=== PATIENT | male | born 1945 | race Caucasian/White ===

== ENCOUNTER 2023-08-03 09:25 | Day surgery (SDC) | payer MEDICARE, OTHER, SELFPAY ==
[2023-08-03 09:49] LABS: Hematocrit 32.5 % (39.0-52.0); Hemoglobin 10.2 g/dL (13.0-18.0); Mean Corp Hgb Conc. 31.4 g/dL (33.0-37.0); Mean Corpuscular Hgb 28.4 pg (27.0-31.0); Mean Corpuscular Volume 90.5 fL (80.0-94.0); Mean Platelet Volume 8.8 fL (7.4-10.4); Platelet Count 173 10^3/uL (130-400); Red Blood Cell Count 3.59 10^6/uL (4.70-6.10); Red Cell Dist. Width 16.9 % (11.5-14.5); White Blood Cell Count 7.1 10^3/uL (4.8-10.8)
[2023-08-03 09:58] VITALS: BP 90/60
[2023-08-03 09:58] LABS: APTT 27.9 Sec (23.4-35.0); INR 1.15; PT 14.6 Sec (11.4-14.6)
--- NOTE | 2023-08-03 10:02 | W.ICD.CONTRA ---
Post ICD/TOWEL DISTRIBUTOR-D
-
History of NM?: No
LV Function
Left ventricular function study result?: Ejection Fraction </= 35%
ACEI/ARB/ARNI
Patient already on ACEI/ARB/ARNI: No
ACEI/ARB/ARNI Contraindication: Worsening Renal Function
Beta-Emelina
Patient already on Beta Emelina: Yes
[2023-08-03 10:10] LABS: ALT (SGPT) 16 U/L (0-50); AST (SGOT) 21 U/L (17-59); Albumin 3.1 g/dl (3.5-5.0); Alkaline Phosphatase 89 U/L (38-126); Blood Urea Nitrogen 40 mg/dl (9-20); Calcium 8.6 mg/dl (8.4-10.2); Carbon Dioxide 28 mmol/L (22-30); Chloride 99 mmol/L (98-107); Glucose 94 mg/dl (70-99); Potassium 4.1 mmol/L (3.5-5.1); Sodium 137 mmol/L (135-145); Total Bilirubin 0.6 mg/dl (0.2-1.3); Total Protein 5.8 g/dl (6.3-8.2); eGFR 11.58
[2023-08-03 11:14] VITALS: BP 80/57
[2023-08-03 11:15] VITALS: BP 80/57
[2023-08-03 11:29] VITALS: BP 83/58
[2023-08-03 11:44] VITALS: BP 81/50
[2023-08-03 11:59] VITALS: BP 91/56
--- NOTE | 2023-08-03 12:29 | ITS.CL.ICD ---
Logistics Project Manager - ICD
Implantable Cardioverter Defibrillator
Procedure Report:
Date of Procedure: August 03, 2023
Patient : 1945
Procedures: BiV ICD generator change
Indication: 1) Class III CHF, LVEF 20 to 25% with wide QRS greater than 150 ms and generator at DREA
�
Implants:�
Pulse Generator: Bermudez CD3 [id number] serial #[id number]
Atrial Lead: Bermudez 1943; Serial# [id number] implanted 2010
Right Ventricular Lead: Bermudez 7120Q serial number [id number]; implanted 2010
Left Ventricular Lead: Bermudez; Model# [id number]; Serial# [id number] implanted 2010
�
Explanted generator:
Bermudez model 3357 serial #[id number] implanted 2016
�
Technique: The patient was prepped and draped in the usual fashion. Local anesthetic was applied to the left prepectoral subcutaneous tissue. The subcutaneous pocket was entered and. Hemostasis was excellent. The chronic leads were removed from
the chronic generator and the chronic generator was removed from the field. The new generator was brought to the field and connected to the chronic leads. The leads were appropriately attached to the device. The pocket was irrigated with
antibiotic solution. The device and leads were placed in the pocket and the device was secured to pectoralis muscle and facia. The incision was closed with absorbable sutures. The estimated blood loss was minimal. There were no complications. Device
based testing was performed as described below. IV contrast total: 5 cc.
�
System Analysis:
RA lead: The patient was in atrial fibrillation and in permanent atrial fibrillation was left in VVIR mode. There is been chronic noise on the right atrial lead but the lead tip was placed in the generator.
RV lead: R: 6 mV; Threshold: 1.0 V @ 0.5 ms; Impedance: 360 ohms.
LV lead: Threshold: 0.75 V @ 0.5 ms; Impedance: 310 ohms.
�
Final Programming: Tachy: VT/VF:188; Georgi: VVIR 60-120
�
Conclusion: Uncomplicated Biventricular ICD implant and testing.
�
Recommendation: Routine post BiV ICD care.
�
cc: Dr. Deven Mantilla
�
== END 2023-08-03 12:20 | disposition home or self-care (01) ==
LOC: CATH 09:25
PROVIDERS: ATTENDING PHYSICIAN Internal Medicine Cardiovascular Disease; FAMILY PHYSICIAN Family Medicine; OTHER PHYSICIAN Internal Medicine Cardiovascular Disease
DX: Z45.02 Encounter for adjustment and management of automatic implantable cardiac defibrillator (principal); I50.42 Chronic combined systolic (congestive) and diastolic (congestive) heart failure; I11.0 Hypertensive heart disease with heart failure; I25.10 Atherosclerotic heart disease of native coronary artery without angina pectoris; I42.9 Cardiomyopathy, unspecified
CPT/HCPCS: 33264; 80053; 85027; 85610; 85730; C1882

== ENCOUNTER 2024-06-07 18:25 | Observation (INO) | payer MEDICARE, OTHER, SELFPAY ==
[2024-06-07] VITALS (7 sets, daily range): BP systolic 81–101; BP diastolic 43–65; BMI 23.1; BMI 23.5
--- NOTE | 2024-06-07 15:14 | ED.GENMED ---
History of Present Illness
General
Chief Complaint: Dehydration Symptoms
Source: patient
Exam Limitations: none
Time Seen by Provider: 06/07/24 14:56
Nursing documentation reviewed up to this point in time: agreed with
History of Present Illness
History of Present Illness:
Patient is a 78-year-old male with past medical history of lung cancer, 7 years ago with radiation, end-stage renal disease on peritoneal dialysis, hypertension, pacemaker, insulin had diabetes presents to the ER for evaluation. Patient reports he
has been sick for the past 2 weeks with cough and chest congestion. He completed 1 antibiotic which did not help with symptoms and his family doctor put him on Zithromax. Since being on Zithromax he has been feeling better. Here now reports for
the past 3 days he has had diarrhea. He does peritoneal dialysis on his own every night however he went into the dialysis center today and they did culture his fluid and analyze his fluid which was clear. I do not feel this is infected. They were
concerned however that he was dehydrated and was sent to the ED for labs/fluids.
Pt denies any abdominal pain, fevers.
Pt has had a decreased appetite and has lost weight since he has been sick for the past several days.
Pt reports his BP normally runs in the 90s/ .
Review of Systems
Review of Systems
Allergies reviewed?: Yes
All Other Systems: ROS reviewed and negative except as documented in HPI and ROS
Constitutional: Reports no symptoms; Denies fever, fatigue or chills
Respiratory: Reports cough (has improved )
Cardiac: Reports no symptoms
ABD/GI: Reports diarrhea; Denies abdominal pain, nausea or vomiting
: Reports no symptoms
Musculoskeletal: Reports no symptoms
Skin: Reports no symptoms
Neurological: Reports no symptoms
Psychiatric: Reports no symptoms
Phy Exam
General Physical Exam
General Presentation: no apparent distress
General age: appears stated age
General Skin: warm and dry
General Habitus: elderly
General Mental: alert
General Hydration: dry mucous membranes
Cardiovascular Exam
Cardiovascular Exam: regular rate/rhythm, no murmur and normal peripheral pulses
Pulmonary Exam
Pulmonary Exam: lungs clear and no respiratory distress
Gastrointestinal Exam
Gastrointestinal Exam: non tender, soft and other (no erythema to abdomen)
Neurological Exam
Neurological Exam: alert and oriented x3
Musculoskeletal Exam
Musculoskeletal Exam: full ROM
Skin Exam
Skin Exam: normal color and warm/dry
Psychiatric Exam
Psychiatric Exam: normal mood/affect
Course
Orders/Labs/Results
Orders:
Orders
06/07/24 Breakfast
Sodium, 2 Gram
At Your Request: Full Participation
Fluid Restriction: 1500 mL/day (50 oz)
Low Sodium: 2000 debi/ 17 CHO Diabetic
06/07/24 15:15
IV Insert/Care/Rem.- Treatment PRN
06/07/24 15:16
CR Chest - 2 Views Urgent
Comment:
Reason For Exam: cough
06/07/24 15:17
0.9% Sodium Chloride 1000 ml [Nss] 1,000 ml IV BOLUS
06/07/24 15:40
Complete Blood Count/With Diff Urgent
Comprehensive Metabolic Panel Urgent
06/07/24 16:33
Potassium Chloride [KCl] 40 meq PO NOW STA
06/07/24 16:46
Midodrine [ProAmatine] 15 mg PO NOW STA
06/07/24 17:41
Potassium Chloride [KCl] 40 meq 0.9% Sodium Chloride 250 ml [Nss] 250 ml IV NOW
06/07/24 18:01
Admit/Transfer Patient As Directed
Co-Sign Provider:
Level of Care: Observation services
Assign to:: IMU- Intermediate Care
Physician / Group: Paul Lorenzo
Diagnosis: Hypokalemia
06/07/24 18:02
PRN Pain Medication Management As Directed
May give lesser potent ordered pain med per pt: Yes
preference::
Protocol:: Medication orders for pain may be administered in a
manner that supports deferring to patient preference
when the pt is:
- Requesting an ordered lesser potent pain medication.
Least to most potent pain medications are defined
as: acetaminophen < NSAID < tramadol < opioids
(morphine, oxycodone, hydromorphone).
- Requesting a lesser dose of the same medication IF
ORDERED.
- Requesting a less intrusive route of administration
if both routes are prescribed by the provider (PO <
IV).
06/07/24 18:04
Code Status As Directed
Resuscitation Status: Full Code
06/07/24 19:45
Acetaminophen [Tylenol] 650 mg PO Q4HPRN PRN
Dextrose 50%-Water [Dextrose 50% Syringe] 12.5 grams IV Q02CRRH PRN
Glucagon [GlucaGen] 1 mg IM PRN PRN
Pt's Own Ins. Pump Aspart [PT'S OWN INSULIN PUMP - NovoLOG] See Dose Instructions SC PRN PRN
06/07/24 19:45
Activity As Directed
Activity Level: Out of Bed-Early Mobility
With Assistance
Bedside Glucose Monitoring As Directed
Frequency: AC&HS
Vital Signs As Directed
Frequency: Per unit guidelines
Weight As Directed
Frequency: Daily
DX Deep Vein Thrombosis Video Routine
06/07/24 20:00
Heparin 5,000 units SC Q12
Tamsulosin [Flomax] 0.4 mg PO BID
06/07/24 21:59
Potassium Routine
06/07/24 22:00
Midodrine [ProAmatine] 15 mg PO TID
Pt's Own Ins. Pump Aspart [PT'S OWN INSULIN PUMP - NovoLOG] See Dose Instructions SC ACHS
06/08/24 03:58
Basic Metabolic Panel IN AM
Complete Blood Count/No Diff IN AM
Hgba1c [Glycohemoglobin (HgbA1c)] IN AM
06/08/24 06:00
Levothyroxine [Synthroid] 50 mcg PO DAILY@0600
06/08/24 08:00
Atorvastatin [Lipitor] 10 mg PO DAILY
Calcium Acetate [Phoslo] 667 mg PO BID@0800,1200
Ergocalciferol [Drisdol (Vitamin D2)] 50,000 units PO Q30D
Lactobac/Bifidobac [Visbiome] 1 cap PO DAILY
Pantoprazole [Protonix] 40 mg PO DAILY
Renal Cap [Nephrocap] 1 capsule PO DAILY
Abnormal Lab Results
06/07/24
15:40
RBC 3.70 L 10^6/uL
(4.70-6.10)
Hgb 11.3 L g/dL
(13.0-18.0)
Hct 33.6 L %
(39.0-52.0)
RDW 17.0 H %
(11.5-14.5)
Abs Immat Gran (auto) 0.1 H 10^3/uL
(0-0.05)
Absolute Monos (auto) 1.2 H 10^3/uL
(0.1-0.6)
Immature Gran % 1.4 H %
(0-0.5)
Lymphocytes % 17.1 L %
(20.5-51.1)
Monocytes % 12.7 H %
(1.7-9.3)
Potassium 2.6 L* mmol/L
(3.5-5.1)
Chloride 95 L mmol/L
(98-107)
BUN 30 H mg/dl
(9-20)
Creatinine 6.7 H* mg/dL
(0.7-1.3)
Glucose 126 H mg/dl
(70-99)
Total Protein 6.1 L g/dl
(6.3-8.2)
Albumin 3.2 L g/dl
(3.5-5.0)
06/07/24 15:40
06/07/24 15:40
Vital Signs
Initial and Last Documented VS:
Initial Vital Signs
Temp Pulse Resp BP
97.7 F 59 20 86/43
06/07/24 14:23 06/07/24 14:23 06/07/24 14:23 06/07/24 14:23
Last Documented Vital Signs
Temp Pulse Resp BP Pulse Ox
97.1 F 60 18 90/50 94
06/08/24 11:00 06/08/24 11:00 06/08/24 11:00 06/08/24 11:00 06/08/24 06:18
MDM/Problems Addressed
Differential Diagnosis Includes:
not limited
MDM/Problems Addressed:
As documented patient is a 78-year male history of end-stage renal disease on hemodialysis presented for evaluation. Patient has had cough for the past 2 weeks completed antibiotics however the past 3 days has had diarrhea. Patient was sent for
possible dehydration from his dialysis nurses. Patient's denies any fevers and is afebrile here no diarrhea here he denies any abdominal pain and his fluid was clear at dialysis center this morning. No concerning symptoms for SBP. Patient does
appear dry and was given fluids. He reports his blood pressure is normally in the 90s systolically. He has been in the ED systolically here however is due for midodrine. This dose was ordered. His potassium was found to be low at 2.6 no acute EKG
findings. Patient was ordered IV and oral potassium.
Will admit for dehydration and hypokalemia.
Chronic conditions affecting care:
ESRD hx of PD (pt does on his own )
*Radiology
Radiology exam reviewed: radiology read reviewed
*Pulse Oximetry
Patient hypoxic: no
*Critical Care Note
Total Time (30-74mins, 75-104mins- exclusive of procedures): Not Applicable
ED Attending Note
-
Portions of this chart may have been created with voice recognition software.� Occasional wrong word or��sound alike� substitutions may have occurred due to the inherent limitations of voice recognition software.
Discharge Plan
Departure
Patient Disposition: Admit
Date of Disposition: 06/07/24
Time of Disposition: 16:50
Admit to: Telemetry
Admit to doctor: hypokalemia
Presentation/result/management discussed w/ accepting MD/DO: Hospitalist
Patient with high blood pressure during this ER visit?: No
Condition: Fair
Covid-19: Not Applicable
Discharge Problem:
Acute hypokalemia
Interventions
Interventions:
*Risk Screen - Suicide Last Done: 06/07/24 21:24
*General Assessment Last Done: 06/07/24 15:43
*Neglect/Abuse Screening Last Done: 06/07/24 15:43
*ED- Fall Risk Assessment Last Done: 06/07/24 15:43
*ED COVID-19 Vaccine History Last Done: 06/07/24 21:24
*Nursing Disposition Last Done: 06/07/24 19:57
ED- Cardiac Assessment Last Done: 06/07/24 17:25
ED- Neurological Assessment Last Done: 06/07/24 15:55
ED- Pulmonary Assessment Last Done: 06/07/24 15:55
Discharge Date and Time
Discharge Date/Time: 06/07/24 19:59
[2024-06-07] MEDS: NSS 1000 IV (15:42)
[2024-06-07 15:58] LABS: % Immature Granulocytes 1.4 % (0-0.5); % Lymphocytes 17.1 % (20.5-51.1); % Monocytes 12.7 % (1.7-9.3); % Neutrophils 64.8 % (42.2-75.2); Absolute Basophils 0.1 10^3/uL (0-0.2); Absolute Eosinophils 0.3 10^3/uL (0-0.7); Absolute Immature Granulocytes 0.1 10^3/uL (0-0.05); Absolute Lymphocytes 1.6 10^3/uL (1.2-3.4); Absolute Monocytes 1.2 10^3/uL (0.1-0.6); Absolute Neutrophils 6.1 10^3/uL (1.4-6.5); Hematocrit 33.6 % (39.0-52.0); Hemoglobin 11.3 g/dL (13.0-18.0); Mean Corp Hgb Conc. 33.6 g/dL (33.0-37.0); Mean Corpuscular Hgb 30.5 pg (27.0-31.0); Mean Corpuscular Volume 90.8 fL (80.0-94.0); Mean Platelet Volume 8.6 fL (7.4-10.4); Nucleated Red Blood Cells % 0 % (-); Platelet Count 174 10^3/uL (130-400); White Blood Cell Count 9.3 10^3/uL (4.8-10.8)
[2024-06-07 16:26] LABS: ALT (SGPT) 20 U/L (0-50); AST (SGOT) 21 U/L (17-59); Albumin 3.2 g/dl (3.5-5.0); Alkaline Phosphatase 107 U/L (38-126); Blood Urea Nitrogen 30 mg/dl (9-20); Calcium 9.2 mg/dl (8.4-10.2); Carbon Dioxide 28 mmol/L (22-30); Chloride 95 mmol/L (98-107); Estimated Creatinine Clearance 10 ml/min; Glucose 126 mg/dl (70-99); Potassium 2.6 mmol/L (3.5-5.1); Sodium 136 mmol/L (135-145); Total Bilirubin 0.8 mg/dl (0.2-1.3); Total Protein 6.1 g/dl (6.3-8.2); eGFR 7.96
[2024-06-07] MEDS: KCL 40 MEQ PO ×2 (16:40→22:49)
[2024-06-07] MEDS: ProAmatine 15 MG PO ×2 (16:52→21:17)
--- NOTE | 2024-06-07 17:59 | W.PN.UPDATE ---
Update Note
Progress Note Update
I saw and examined the patient.
The ENFORCEMENT MANAGER's note was reviewed and I agree with the note.
Patient is a 78-year-old male with past medical history of ESRD on peritoneal dialysis, essential hypertension, hyperlipidemia, chronic systolic congestive heart failure, hypothyroidism chronic hypotension on midodrine, gastroesophageal reflux
disease, insulin-dependent diabetes mellitus came to ER from outside office after patient was complaining of feeling sick for the last few days. Apparently patient was having some cough without significant phlegm production and patient was given 2
course of antibiotics. The second to biotic was Zithromax with which patient improved although patient started having some diarrhea with last bowel movement yesterday afternoon before presentation and was semiliquid. No abdominal
pain/nausea/vomiting/fever.
HEENT: No pallor, cyanosis, or jaundice. Throat clear.
NECK: Supple. No JVD.
RESPIRATORY: Lungs clear to auscultation.
CVS: S1, S2 normal. RRR. No murmur, rub or gallop.
ABDOMEN: Soft, non-tender. No distension. BS+/normal.
EXTREMITIES: No peripheral cyanosis or edema.
SENIOR DYNAMICS CRM DEVELOPER: AOx3. No focal deficits.
1. R/o infection
- No reported fever. No leukocytosis on lab. Continue monitoring
- Chest x-ray showing bilateral effusion which is chronic per patient
- Patient had a peritoneal fluid sample taken in office, follow-up result. Will contact primary office tomorrow for preliminary report
- Patient had diarrhea which has improved, likely antibiotic use related. If continues we will recheck.
- Patient already finished a course of antibiotic, hold on any further antibiotic
- If any fever episode patient will require blood cultures/repeat peritoneal fluid sample and culture
2. ESRD on PD
- Nephrology consulted for further help
3. Chronic Hypotension
- This improved after 1 L of normal saline in the ER
- Continue home dose of midodrine
- Will hold Coreg/eplerenone for tonight
4. Chronic systolic congestive heart failure
- Patient has been on torsemide in the past, currently not on it
- No signs suggestive of ongoing volume overload/heart failure exacerbation
5. Insulin-dependent diabetes mellitus
- Continue patient home insulin pump
6. Hypothyroidism
- Maintain on levothyroxine
7. Hypokalemia
- Due to decreased oral intake and some diarrhea related
- Got 40 mEq in ER,
Heparin subq
Total time spent : 77 mins
I personally saw and examined the patient.
I have reviewed all diagnostic interpretations and treatment plans as written.
Time includes patient management by me, time spent at the patients bedside, time to review lab and imaging results, discussing patient care, documentation in the medical record, and time spent with the family or caregiver and discussing care plan
with RN/Consultants.
--- NOTE | 2024-06-07 18:11 | HPS.HSE ---
Family Physician
-
Family Physician: Adriel Adam
Chief Complaint
-
Weakness and Poor Appetite
History of Present Illness
Patient is a 78 y/o male past medical history of VT, Atrial Fibrillation, ESRD on PD, chronic hypotension, and diabetes mellitus who presents with weakness. Patient reports he started with an upper respiratory infection about 2 weeks ago. He
completed a coarse of Zithromax which improved his respiratory symptoms but since that time he has had poor appetite, and also a few episode of diarrhea. He reports one episode of diarrhea for the past two days, but none today. Due to his
persistent weakness he contact his PD nurse who took a fluid sample from the PD catheter and reported it was 'clear', but would sent it off for culture just in case. He presented to the emergency department for evaluation where he was found to have
hypokalemia, and hypotension. Patient received IVFs and his usual dose of midodrine with improvement in his blood pressure, and reports feeling overall improved. Patient notes he previously was taking a potassium supplement which was stopped a few
weeks ago. He also admits to stopping his diuretics a few weeks ago as he is no longer making much urine. He denies fevers, sweats or chills.
Medical History
Past Medical History
Past Medical History: Reports Other
Additional Past Medical History:
Ventricular Tachycardia
Atrial Fibrillation s/p PVI and MAZE procedure
ESRD on Peritoneal Dialysis
Chronic Hypotension
Diabetes Mellitus, Type II
Hyperlipidemia
Hypothyroidism
BPH
GERD
Prostate Cancer s/p seed brachytherapy
Past Surgical History: Reports Other
Additional Past Surgical History:
BiVICD
Left Upper Ext AV Fistula
Left Ankle Bone Spur
Social History
Tobacco: Non-smoker
Alcohol: None
Family History
Family History: Not pertinent
Allergies / Home Medications
Allergies reflects when Allergies were last updated in [employer].
Home Medications with original date entered in [employer]
Allergy/Medication List:
Allergies
Allergy/AdvReac Type Severity Reaction Status Date / Time
teds stocking Allergy blisters Uncoded 06/07/24 14:27
Home Medications
atorvastatin 10 mg tablet 10 mg PO DAILY 03/13/16
eplerenone 25 mg tablet 25 mg PO DAILY 03/13/16
levothyroxine 50 mcg tablet 50 mcg PO DAILY 11/05/21
pantoprazole 40 mg tablet,delayed release 40 mg PO DAILY 11/05/21
tamsulosin 0.4 mg capsule (Flomax) 0.4 mg PO BID 11/25/21
calcium acetate 667 mg tablet 667 mg PO BID@0800,1200 08/03/23
midodrine 5 mg tablet 15 mg PO TID 08/03/23
Patient's Own Insulin Pump-Novolog See Rx Instructions .Route .COMPLEX 06/07/24
carvedilol 3.125 mg tablet 3.125 mg PO BID 06/07/24
ergocalciferol (vitamin D2) 1,250 mcg (50,000 unit) capsule 1,250 mcg PO QMONTH 06/07/24
gentamicin 0.1 % topical cream 1 applic topical HS 06/07/24
vitamin B complex-vitamin C-folic acid 0.8 mg tablet (Leah-Wade) 1 tab PO DAILY 06/07/24
Review of Systems
-
A 12 point ROS was completed and negative except as noted: Yes
Constitutional: Denies Fever or Chills
Respiratory: Reports Other (Prior respiratory symptoms improved)
Abdomen/GI: Reports Diarrhea and Anorexia; Denies Abdominal Pain or Nausea
Physical Exam
Vital Signs
Vital Signs
Temp Pulse Resp BP Pulse Ox
97.7 F 58 16 81/65 99
06/07/24 14:23 06/07/24 16:52 06/07/24 15:45 06/07/24 16:52 06/07/24 16:00
Physical Exam
General: Comfortable and Conversant
HEENT: Anicteric and Moist mucous membranes
Respiratory: Clear and Non Labored Respirations
Cardiac: S1/S2 and Regular Rhythm
GI: Soft, Non Tender and Other (PD catheter)
Musculoskeletal: No Clubbing and No Cyanosis
Skin: Warm and Dry
Neuro: Awake, Alert, Oriented and Nonfocal/grossly intact
Psych: Calm
Laboratory Results
-
06/07/24 15:40
Laboratory Results
PT Cancelled 06/07/24 14:50
INR Cancelled 06/07/24 14:50
APTT Cancelled 06/07/24 14:50
Total Bilirubin 0.8 mg/dl (0.2-1.3) 06/07/24 15:40
AST 21 U/L (17-59) 06/07/24 15:40
ALT 20 U/L (0-50) 06/07/24 15:40
Alkaline Phosphatase 107 U/L (38-126) 06/07/24 15:40
Troponin I Cancelled 06/07/24 14:50
Data Reviewed
-
Lab Data: Labs Reviewed by me
Old Records: Reviewed
Impression/Plan
-
Acute/Severe Hypokalemia, likely multifactorial from poor oral intake, GI losses and stopping potassium supplement
-Give 40mEq PO Now
-Recheck potassium level later this evening
Diarrhea, suspect antibiotics associated
-Add probiotics
-Check C-Diff if develops worsening diarrhea
ESRD on Peritoneal Dialysis
-Consult Nephrology
-Continue calcium acetate
Chronic Hypotension
-Continue midodrine
Diabetes Mellitus, Type II
-Continue NovoLog Insulin Pump
-Monitor sugars
Hyperlipidemia
-Continue atorvastatin
Hypothyroidism
-Continue levothyroxine
BPH
-Continue Flomax
Hx Ischemic Cardiomyopathy / Ventricular Tachycardia s/p BiV-ICD
Hx Atrial Fibrillation s/p PVI and MAZE procedure
Hx Prostate Cancer s/p seed brachytherapy
DVT proph: SC Heparin
Code Status: Full Code
[2024-06-07] MEDS: FLOMAX 0.4 MG PO (21:21)
[2024-06-07 22:10] LABS: Glucose - Point of Care 91 mg/dl (70-99)
--- NOTE | 2024-06-07 22:26 | PTCARENOTE ---
received patient via stretcher from ED. Patient walked from stretcher to bed using a single point cane without issue. patient is on peritoneal dialysis. HEALTH PLAN SPECIALIST TT because does not have PD orders and he has not been seen by nephrology. CHELLE
communicated with admitting ED provider and said it is okay to hold off on PD tonight and will start tomorrow. Nephrology consult placed. Patient told this RN about bleeding hx that required multple units of blood to be transfused and this happened
in [place], so patient is refusing heparin subq. Notified HEALTH PLAN SPECIALIST. K pad ordered for patient's feet. Patient resting in bed, call pablo in reach.
[2024-06-07 22:33] LABS: Potassium 2.7 mmol/L (3.5-5.1)
[2024-06-08] VITALS (9 sets, daily range): BP systolic 80–96; BP diastolic 49–61
[2024-06-08 04:20] LABS: Hematocrit 29.6 % (39.0-52.0); Mean Corp Hgb Conc. 33.8 g/dL (33.0-37.0); Mean Corpuscular Hgb 30.8 pg (27.0-31.0); Mean Corpuscular Volume 91.1 fL (80.0-94.0); Mean Platelet Volume 8.8 fL (7.4-10.4); Platelet Count 139 10^3/uL (130-400); Red Blood Cell Count 3.25 10^6/uL (4.70-6.10); Red Cell Dist. Width 16.9 % (11.5-14.5)
[2024-06-08 04:46] LABS: Blood Urea Nitrogen 32 mg/dl (9-20); Calcium 8.7 mg/dl (8.4-10.2); Carbon Dioxide 25 mmol/L (22-30); Chloride 101 mmol/L (98-107); Estimated Creatinine Clearance 9 ml/min; Glucose 87 mg/dl (70-99); Potassium 3.3 mmol/L (3.5-5.1); Sodium 137 mmol/L (135-145)
[2024-06-08] MEDS: SYNTHROID 50 MCG PO (05:40)
[2024-06-08 08:07] LABS: Glucose - Point of Care 100 mg/dl (70-99)
[2024-06-08] MEDS: ProAmatine 15 MG PO (08:33)
[2024-06-08] MEDS: LIPITOR 10 MG PO (08:34)
[2024-06-08] MEDS: NEPHROCAP 1 CAPSULE PO (08:34)
[2024-06-08] MEDS: FLOMAX 0.4 MG PO (08:34)
[2024-06-08] MEDS: PROTONIX 40 MG PO (08:34)
[2024-06-08] MEDS: PHOSLO 667 MG PO (08:35)
[2024-06-08] MEDS: VISBIOME 1 CAP PO (08:35)
[2024-06-08] MEDS: DRISDOL (VITAMIN D2) 50000 UNITS PO (08:35)
--- NOTE | 2024-06-08 08:53 | W.CON.NEPH ---
Consultation
-
Date/Time Consultation Requested: 06/07/2024 6:30 PM
Date/Time Consultation Performed: 06/08/2024 9:00 AM
Requesting Provider: Dr. Lorenzo
Performing Provider: Dr. Burgos
Reason for Consultation: End-stage renal disease
Medical History
-
Chief Complaint: End-stage renal disease
History of Present Illness:
The patient is a 78-year-old male with a past medical history of end-stage renal disease maintained on peritoneal dialysis. He has a history of chronic hypotension and is maintained on high-dose midodrine 15 mg 3 times daily. He is maintained
calcium acetate for his hyperphosphatemia and statin therapy for his dyslipidemia. He has a known history of diabetes and is maintained on insulin pump. He presented to the hospital with weakness and hypokalemia with a potassium of 2.6. The
patient states that he had an upper respiratory infection 2 weeks prior. He completed a course of Zithromax which resulted in improvement of his upper respiratory symptoms but ongoing poor appetite and diarrhea. Apparently his PD nurse had
obtained peritoneal fluid culture which was quoted as being clear. Patient notes he had stopped taking his potassium supplement a few weeks ago. Patient states he also had stopped his diuretic a few weeks ago. We were consulted for his peritoneal
dialysis management.
Past Medical History
Ventricular Tachycardia
Atrial Fibrillation s/p PVI and MAZE procedure
ESRD on Peritoneal Dialysis
Chronic Hypotension
Diabetes Mellitus, Type II
Hyperphosphatemia
Hyperlipidemia
Hypothyroidism
BPH
GERD
Left upper extremity AV fistula
BiV ICD
Prostate Cancer s/p seed brachytherapy
Social History
Tobacco: Non-Smoker
Alcohol: None
Family History
Family History: Not Pertinent
Allergies / Home Medications
Allergy/AdvReac Type Severity Reaction Status Date / Time
teds stocking Allergy blisters Uncoded 06/07/24 14:27
�Medication �Instructions �Recorded �Confirmed �Type
atorvastatin 10 mg tablet 10 mg PO DAILY High Cholesterol 03/13/16 06/07/24 History
eplerenone 25 mg tablet 25 mg PO DAILY Fluid 03/13/16 06/07/24 History
Retention/Swelling
levothyroxine 50 mcg tablet 50 mcg PO DAILY Thyroid 11/05/21 06/07/24 History
pantoprazole 40 mg tablet,delayed 40 mg PO DAILY Gastrointestinal 11/05/21 06/07/24 History
release Issue
tamsulosin 0.4 mg capsule (Flomax) 0.4 mg PO BID Urinary Issue 11/25/21 06/07/24 History
calcium acetate 667 mg tablet 667 mg PO BID@0800,1200 08/03/23 06/07/24 History
midodrine 5 mg tablet 15 mg PO TID Blood Pressure 08/03/23 06/07/24 History
Patient's Own Insulin Pump-Novolog See Rx Instructions .Route .COMPLEX 06/07/24 06/07/24 History
carvedilol 3.125 mg tablet 3.125 mg PO BID Blood Pressure 06/07/24 06/07/24 History
ergocalciferol (vitamin D2) 1,250 1,250 mcg PO QMONTH Supplement 06/07/24 06/07/24 History
mcg (50,000 unit) capsule
gentamicin 0.1 % topical cream 1 applic topical HS 06/07/24 06/07/24 History
vitamin B complex-vitamin C-folic 1 tab PO DAILY Supplement 06/07/24 06/07/24 History
acid 0.8 mg tablet (Leah-Wade)
Review of Systems
-
History Source: Patient
All other systems: Negative unless noted
Constitutional: Weight Loss
EENT: No Symptoms
Respiratory: No Symptoms
Cardiac: No Symptoms
Abdomen/GI: Anorexia
: No Symptoms
Musculoskeletal: No Symptoms
Neurological: No Symptoms
Physical Exam
Vital Signs
Vital Signs
Temp Pulse Resp BP Pulse Ox
97.8 F 72 22 86/51 95
06/08/24 03:30 06/08/24 06:00 06/08/24 06:00 06/08/24 06:00 06/08/24 06:00
Lab Results
06/08/24 03:58
06/08/24 03:58
WBC 7.0 10^3/uL (4.8-10.8) 06/08/24 03:58
RBC 3.25 10^6/uL (4.70-6.10) L 06/08/24 03:58
Hgb 10.0 g/dL (13.0-18.0) L 06/08/24 03:58
Hct 29.6 % (39.0-52.0) L 06/08/24 03:58
Plt Count 139 10^3/uL (130-400) D 06/08/24 03:58
Sodium 137 mmol/L (135-145) 06/08/24 03:58
Potassium 3.3 mmol/L (3.5-5.1) L 06/08/24 03:58
Chloride 101 mmol/L (98-107) 06/08/24 03:58
Carbon Dioxide 25 mmol/L (22-30) 06/08/24 03:58
BUN 32 mg/dl (9-20) H 06/08/24 03:58
Creatinine 7.2 mg/dL (0.7-1.3) H* 06/08/24 03:58
eGFR 7.30 06/08/24 03:58
Glucose 87 mg/dl (70-99) 06/08/24 03:58
Calcium 8.7 mg/dl (8.4-10.2) 06/08/24 03:58
Albumin 3.2 g/dl (3.5-5.0) L 06/07/24 15:40
Physical Exam
General: AOx3, Nontoxic , NAD, cachectic
HEENT: PERRL, EOMI, Anicteric, Conjunctivae Clear, Ear/Nose Intact, Hearing Normal, Oropharynx Clear/Moist, Dentition Intact, Facial Symmetry, Neck Supple, Neck: Trachea Midline, No JVD and No Thyromegaly, no Bruits
Respiratory: Clear to auscultation bilaterally with normal lung excursion, profoundly decreased breath sounds at right lung base
Cardiac: S1/S2 and Regular Rate/Rhythm very distant heart soundd
Breast: Deferred by me
Abdomen: Soft, Nontender, Nondistended, Normal Bowel Sounds and No Hepatosplenomegaly, PD catheter exit site clean; no evidence of erythema infection or discharge from catheter site
Rectal: Deferred by Provider
Genito-urinary: No Costovertebral Tenderness
Extremities: No Clubbing, Noted Cyanosis and No Edema
Skin: No Rash or open lesions, chronic cyanotic changes of lower extremities noted
Neuro: Nonfocal/Grossly Intact, CN II-XII (Intact) and Strength (Musculoskeletal exam 5 out of 5 both upper and lower extremities)
Hematologic/Lymphatic: No Cervical Lymphadenopathy, No Submandibular Lymphadenopathy and No Supraclavicular Lymphadenopathy
Psych: Mood/afflect pleasant, Insight/judgement good and Appropriate
Vascular: plus 1 radial pulses
Vascular Access: AVF
Data Reviewed
-
Radiology: Image Personally Visualized and interpreted (Chest x-ray personally reviewed notable for pacer/AIC wires, right sided opacity possible effusion)
Medical Tests (Nuc Med, Echo etc): Report Reviewed by me (Reviewed previous echocardiogram from date 01/15/2022 ejection fraction 30)
Labs: Labs Reviewed by me (BMP CBC)
Old Records: Reviewed (Reviewed discharge summary from 11/26/2021: following Watchman implant)
Assessment/Plan
-
Impression:
ESRD on peritoneal dialysis
Presentation with weakness and hypokalemia following diarrhea
History of ischemic cardiomyopathy (EF ~25%) /ventricular tachycardia status post BiV ICD
History of atrial fibrillation status post PVI and maze procedure
History of prostate cancer status post seed brachytherapy
Hypokalemia
Hypothyroidism
Chronic hypotension on high dose midodrine
Anemia
Hyperphosphatemia
Pleural effusion
Plan:
PD: Prescription can be provided, but patient states that he wishes to go home
Replete potassium in reference to hypokalemia: 40meq now and to resume potassium at home (which he normally takes)
Maintain midodrine for blood pressure support, unfortunately ongoing hypotension and weakness likely related to advanced ischemic cardiomyopathy
Patient contacted his PD nurse this morning who told him his PD culture was negative
Maintain phosphate binders for hyperphosphatemia
I concur the patient can be discharged as he appears to be at his baseline
[2024-06-08 08:54] LABS: Glycohemoglobin (HgbA1c) 6.4 % (4.0-5.6)
[2024-06-08] MEDS: KCL 40 MEQ PO (10:15)
--- NOTE | 2024-06-08 12:09 | W.PN.HOSP.TC ---
Today's Communication/Plan
-
d/c home
Assessment / Plan
Assessment / Plan
1. Fatigue
Volume depletion
Infection ruled out
- No reported fever. No leukocytosis on lab. Continue monitoring
- Chest x-ray showing bilateral effusion which is chronic per patient
- Patient had a peritoneal fluid sample taken in office, prelim culture report is negative per office.
- Patient had diarrhea which has improved, likely antibiotic use related. If continues we will recheck.
- Patient already finished a course of antibiotic, hold on any further antibiotic
- If any fever episode patient will require blood cultures/repeat peritoneal fluid sample and culture
2. ESRD on PD
- Nephrology consulted for further help
3. Chronic Hypotension
- This improved after 1 L of normal saline in the ER
- Continue home dose of midodrine
- Will hold Coreg/eplerenone for tonight
4. Chronic systolic congestive heart failure
- Patient has been on torsemide in the past, currently not on it
- No signs suggestive of ongoing volume overload/heart failure exacerbation
5. Insulin-dependent diabetes mellitus
- Continue patient home insulin pump
6. Hypothyroidism
- Maintain on levothyroxine
7. Hypokalemia
- Due to decreased oral intake and some diarrhea related
- got 40meq yesterday, repeat K given today.
Heparin subq
More than 30 minutes spent in discharge including
Final examination of the patient
Summarizing hospital stay
Instructions for continuing care to all relevant caregivers
Preparation of discharge records, prescriptions, and referral forms
Total time spent (in minutes): 39 mins
Anticipated Discharge: Today
Subjective/Interval History
-
Date of Service: June 08, 2024
no issues overnight
feeling better
afebrile overnright
Objective Data
-
Labs:
Laboratory Results
06/08/24
03:58
WBC 7.0
Hgb 10.0 L
Hct 29.6 L
Plt Count 139 D
Sodium 137
Potassium 3.3 L
Chloride 101
Carbon Dioxide 25
BUN 32 H
Creatinine 7.2 H*
Glucose 87
Calcium 8.7
Vital Signs:
Vital Signs
Temp Pulse Resp BP Pulse Ox
97.9 F 71 31 80/55 94
06/08/24 07:20 06/08/24 10:00 06/08/24 10:00 06/08/24 10:00 06/08/24 06:18
Review of Systems
-
Respiratory: Reports No Symptoms
Cardiac: Reports No Symptoms
Abdomen/GI: Reports No Symptoms
Physical Exam
-
General: No Apparent Distress and Comfortable
HEENT: Negative Oxygen
Respiratory: Clear to Auscultation
Cardiac: Regular Rhythm and S1/S2; Negative Murmur or Rub
GI: Soft, Nontender and Nondistended
Musculoskeletal: No Edema
Neuro: Awake, Alert, Oriented, No Motor Deficits and Nonfocal/Grossly Intact
Psych: Calm
--- NOTE | 2024-06-08 16:54 | CM ---
Patient with Hx ESRD on PD with Dx Hypokalemia, volume depletion. Room air.
Met with patient who resides with his in a 2 story house with 2 NGA.
The patient was independent in ADLs and ambulation using his SPC.
The patient does his own peritoneal dialysis.
DME -[facility], PD supplies
No prior VN or SNF.
Prior [facility] [place].
PCP - Adriel Adam
Pharmacy - [facility] [place]
[facility]ARN[facility] Letter completed.
The patient was preparing for discharge today, and states feels ready to go home.
The spouse will provide transport home today.
No CM d/c needs identified.
Plan home today.
== END 2024-06-08 11:52 | disposition home or self-care (01) ==
LOC: IMU 18:25
PROVIDERS: Nurse Practitioner; Physician Assistant Medical; ADMITTING PHYSICIAN Hospitalist; CONSULT PHYSICIAN Specialist; EMERGENCY PHYSICIAN Student in an Organized Health Care Education/Training Program; FAMILY PHYSICIAN Family Medicine; REFERRING PHYSICIAN Internal Medicine Cardiovascular Disease
DX: E86.9 Volume depletion, unspecified (principal); E86.0 Dehydration; E87.6 Hypokalemia; N18.6 End stage renal disease; R63.0 Anorexia; R19.7 Diarrhea, unspecified; I95.89 Other hypotension; I50.22 Chronic systolic (congestive) heart failure; Z79.4 Long term (current) use of insulin; E11.22 Type 2 diabetes mellitus with diabetic chronic kidney disease; E03.9 Hypothyroidism, unspecified
CPT/HCPCS: 71046; 80048; 80053; 82962; 83036; 84132; 85025; 85027; 96361; 96374; 99284; G0378

== ENCOUNTER 2024-10-27 18:06 | Inpatient (IN) | payer MEDICARE, OTHER, SELFPAY ==
[2024-10-27] VITALS (7 sets, daily range): BP systolic 78–93; BP diastolic 59–72; BMI 26.8
[2024-10-27 14:12] LABS: Hematocrit 32.4 % (39.0-52.0); Hemoglobin 10.9 g/dL (13.0-18.0); Mean Corp Hgb Conc. 33.6 g/dL (33.0-37.0); Mean Corpuscular Volume 89.8 fL (80.0-94.0); Nucleated Red Blood Cells % 0 % (-); Platelet Count 193 10^3/uL (130-400); Red Cell Dist. Width 14.9 % (11.5-14.5)
--- NOTE | 2024-10-27 14:32 | ED.GENMED ---
History of Present Illness
<Anselmo Currie PA-C - Last Filed: 10/28/24 19:11>
General
Chief Complaint: Breathing Problem
Source: patient
Time Seen by Provider: 10/27/24 14:26
History of Present Illness
History of Present Illness:
79-year-old male with past medical history of chronic kidney disease (on peritoneal dialysis), insulin-dependent diabetes, previous prostate cancer and lung cancer presenting to the ER for evaluation of increasing shortness of breath over the last
couple of days, last night got to the point where patient could not even tolerate his peritoneal dialysis and needed to stand up and when sitting needs to be sitting upright instead of reclined. Patient has been dealing with an infection where he
has been infusing antibiotics during his dialysis treatments, was noted to have a 'gram-negative infection' but today received a call from his ethnic origins teacher that he also has a gram-positive infection and that they would be changing around his
antibiotics. Currently denying any chest pain, palpitations, diaphoresis. He notes that his edema to the lower extremities is baseline for him. He denies any pleurisy or hemoptysis. Patient notes that as an outpatient yesterday he had [address] scans which showed 'fluid on the lungs' which he believes is what is causing his shortness of breath currently
Past History
<Anselmo Currie PA-C - Last Filed: 10/28/24 19:11>
Past History
ED Past Medical History: Cancer and IDDM
ED Past Surgical History: Cardiac, Tonsilectomy and Urological
Social History
Tobacco: Non-smoker
Alcohol: None
Drug: None
Personal:
Living: with family
Employment: Retired
Review of Systems
<Anselmo Currie PA-C - Last Filed: 10/28/24 19:11>
Review of Systems
All Other Systems: ROS reviewed and negative except as documented in HPI and ROS
Phy Exam
<Anselmo Currie PA-C - Last Filed: 10/28/24 19:11>
Physical Exam
Physical Exam:
GENERAL: Alert , in no apparent distress
HEAD: Normocephalic atraumatic
EYE: conjunctiva clear
NECK: Supple
ENT: o/p clr, mmm.
CARDIAC: Regular rate and rhythm
LUNGS: Slightly diminished lung sounds at the bilateral bases, no wheezing or rhonchi. Slightly increased work of breathing but no accessory muscle use
NEUROLOGICAL: Alert and oriented
SKIN: Warm and dry, skin intact.
MUSCULOSKELETAL: Dusky appearance to the bilateral lower extremities 1+ pitting ankle edema
PSYCH: Normal and appropriate interaction.
Scores
<Anselmo Currie PA-C - Last Filed: 10/28/24 19:11>
Heart Failure Risk
Heart Failure Risk Score: Not Applicable
Heart Score for Chest Pain Patients
STEMI patient?: Not applicable
Withdrawal Assessment of Alcohol
Withdrawal Assessment Completed?: Not applicable
Course
<Anselmo Currie PA-C - Last Filed: 10/28/24 19:11>
Orders/Labs/Results
Orders:
Orders
10/27/24 13:45
Electrocardiogram (*1) Urgent
Reason for Study: Shortness of Breath
EKG- Treatment ONCE
10/27/24 13:51
CMP [Comprehensive Metabolic Panel] Urgent
Complete Blood Count/With Diff Urgent
10/27/24 14:26
CR Chest - 2 Views Urgent
Comment:
Reason For Exam: increasing SOB
10/27/24 14:31
NT-proBNP Urgent
Troponin I Urgent
Blood Culture Q30M
GUILLE Source: Blood/Venous
Specimen Description:
Blood Culture Q30M
GUILLE Source: Blood/Venous
Specimen Description:
10/27/24 Dinner
1600 calorie (13 carb) Diabetic
At Your Request: Full Participation
Regular
At Your Request: Full Participation
10/27/24 17:10
Peritoneal Dialysis As Directed
Use same dialysate for all exchanges or alternate dialysate?: Same for all exchanges
Deflex Low Ca/Low Mag for all exchanges % Dextrose:: 2.5% Dextrose
Volume in liters per exchange (liters):: 2
Exchange Dwell time in hours:: 6
Additives:: No
10/27/24 17:42
Admit/Transfer Patient As Directed
Co-Sign Provider:
Level of Care: Inpatient admission
Assign to:: Telemetry
Physician / Group: hospitalist
Diagnosis: Fluid overload, SOB
Reason for Telemetry: Arrhythmia
Date to Stop Telemetry: 10/30/24
Time to Stop Telemetry: 11:00
Reason for Hospitalization: SOB, fluid overload, dialysis
Expected length of stay greater than two midnights?: Yes
ELOS- Estimated Length of Stay in days: 3
I certify the patient meets the requirements for IP care: Yes
PRN Pain Medication Management As Directed
May give lesser potent ordered pain med per pt: Yes
preference::
Protocol:: Medication orders for pain may be administered in a
manner that supports deferring to patient preference
when the pt is:
- Requesting an ordered lesser potent pain medication.
Least to most potent pain medications are defined
as: acetaminophen < NSAID < tramadol < opioids
(morphine, oxycodone, hydromorphone).
- Requesting a lesser dose of the same medication IF
ORDERED.
- Requesting a less intrusive route of administration
if both routes are prescribed by the provider (PO <
IV).
10/27/24 17:57
Code Status As Directed
Resuscitation Status: Full Code
Bisacodyl [Dulcolax] 10 mg RECTAL [id number] PRN
Docusate W/Senna [Senokot-S] 1 tablet PO BIDPRN PRN
Polyethylene Glycol Powder [Miralax] 17 grams PO DAILYPRN PRN
10/27/24 17:58
Activity As Directed
Activity Level: As Tolerated
Vital Signs As Directed
Frequency: Per unit guidelines
10/27/24 18:04
Dextrose 50%-Water [Dextrose 50% Syringe] 12.5 grams IV [id number] PRN
Glucagon [GlucaGen] 1 mg IM PRN PRN
Bedside Glucose Monitoring As Directed
Frequency: AC&HS
Additional Instructions:: Change to q6h if pt on TPN, tube feeding or not eating
Speech Therapy Eval & Treat Routine
10/27/24 19:28
Acetaminophen [Tylenol] 650 mg PO Q6HPRN PRN MILD PAIN
10/27/24 19:28
IRAD CONSULT Routine
Consulting Provider: Ton Daniel
Was physician already notified: Yes
Procedure being ordered, including laterality if applicable: thoracentesis
Acknowledgement that appropriate orders are entered: Yes
DX Deep Vein Thrombosis Video Routine
10/27/24 19:30
Vancomycin [Vancocin] 1,000 mg CEFTAZidime [Fortaz] 2,000 mg PERIT. DIALYSIS w/ D 2.5 % [Delflex 2.5% Low Ca/Low Mag] 2,000 ml INTRAPERIT ONCE
10/27/24 20:00
CEFTAZidime [Fortaz] 1,000 mg IV Q24H
Carvedilol [Coreg] 3.125 mg PO BID
Heparin 5,000 units SC Q12
Potassium Chloride [KCl] 20 meq PO BID
Tamsulosin [Flomax] 0.4 mg PO BID
10/27/24 22:00
Gentamicin [Gentamicin 0.1% Cream] See Dose Instructions TOPICAL HS
Midodrine [ProAmatine] 15 mg PO TID
10/28/24 05:17
Basic Metabolic Panel IN AM
Complete Blood Count/No Diff IN AM
Glycohemoglobin (HgbA1c) IN AM
10/28/24 06:00
Levothyroxine [Synthroid] 50 mcg PO DAILY@0600
10/28/24 07:30
Calcium Acetate [Phoslo] 667 mg PO AC
Insulin Aspart Corrective Low [Novolog Flexpen-Low Resistance] See Protocol SC AC
10/28/24 08:00
Atorvastatin [Lipitor] 10 mg PO DAILY
Eplerenone [Inspra] 12.5 mg PO DAILY
Pantoprazole [Protonix] 40 mg PO DAILY
Renal Cap [Nephrocap] 1 capsule PO DAILY
10/30/24 11:00
DC Protocol for Telemetry ONCE
Abnormal Lab Results
10/27/24 10/27/24
13:51 14:31
RBC 3.61 L 10^6/uL
(4.70-6.10)
Hgb 10.9 L g/dL
(13.0-18.0)
Hct 32.4 L %
(39.0-52.0)
RDW 14.9 H %
(11.5-14.5)
Abs Immat Gran (auto) 0.2 H 10^3/uL
(0-0.05)
Absolute Monos (auto) 0.8 H 10^3/uL
(0.1-0.6)
Immature Gran % 2.6 H %
(0-0.5)
Lymphocytes % 19.1 L %
(20.5-51.1)
Monocytes % 10.4 H %
(1.7-9.3)
Sodium 131 L mmol/L
(135-145)
Potassium 3.1 L mmol/L
(3.5-5.1)
Chloride 95 L mmol/L
(98-107)
Carbon Dioxide 31 H mmol/L
(22-30)
BUN 22 H mg/dl
(9-20)
Creatinine 5.1 H* mg/dL
(0.7-1.3)
Glucose 111 H mg/dl
(70-99)
Calcium 8.3 L mg/dl
(8.4-10.2)
Troponin I 0.067 H* ng/ml
Total Protein 5.4 L g/dl
(6.3-8.2)
Albumin 2.5 L g/dl
(3.5-5.0)
10/27/24 13:51
10/27/24 13:51
Vital Signs
Initial and Last Documented VS:
Initial Vital Signs
Temp Pulse Resp BP Pulse Ox
97.6 F 67 26 78/65 98
10/27/24 13:28 10/27/24 13:28 10/27/24 13:28 10/27/24 13:28 10/27/24 13:28
Last Documented Vital Signs
Temp Pulse Resp BP Pulse Ox
97.7 F 70 23 85/58 94
10/28/24 15:19 10/28/24 17:30 10/28/24 17:30 10/28/24 16:34 10/28/24 10:37
Mahilt;Melany De Los Santos, DO - Last Filed: 10/27/24 20:25>
Orders/Labs/Results
Orders:
Orders
10/27/24 13:45
Electrocardiogram (*1) Urgent
Reason for Study: Shortness of Breath
EKG- Treatment ONCE
10/27/24 13:51
CMP [Comprehensive Metabolic Panel] Urgent
Complete Blood Count/With Diff Urgent
10/27/24 14:26
CR Chest - 2 Views Urgent
Comment:
Reason For Exam: increasing SOB
10/27/24 14:31
NT-proBNP Urgent
Troponin I Urgent
Blood Culture Q30M
GUILLE Source: Blood/Venous
Specimen Description:
Blood Culture Q30M
GUILLE Source: Blood/Venous
Specimen Description:
10/27/24 Dinner
1600 calorie (13 carb) Diabetic
At Your Request: Full Participation
Regular
At Your Request: Full Participation
10/27/24 17:10
Peritoneal Dialysis As Directed
Use same dialysate for all exchanges or alternate dialysate?: Same for all exchanges
Deflex Low Ca/Low Mag for all exchanges % Dextrose:: 2.5% Dextrose
Volume in liters per exchange (liters):: 2
Exchange Dwell time in hours:: 6
Additives:: No
10/27/24 17:42
Admit/Transfer Patient As Directed
Co-Sign Provider:
Level of Care: Inpatient admission
Assign to:: Telemetry
Physician / Group: hospitalist
Diagnosis: Fluid overload, SOB
Reason for Telemetry: Arrhythmia
Date to Stop Telemetry: 10/30/24
Time to Stop Telemetry: 11:00
Reason for Hospitalization: SOB, fluid overload, dialysis
Expected length of stay greater than two midnights?: Yes
ELOS- Estimated Length of Stay in days: 3
I certify the patient meets the requirements for IP care: Yes
PRN Pain Medication Management As Directed
May give lesser potent ordered pain med per pt: Yes
preference::
Protocol:: Medication orders for pain may be administered in a
manner that supports deferring to patient preference
when the pt is:
- Requesting an ordered lesser potent pain medication.
Least to most potent pain medications are defined
as: acetaminophen < NSAID < tramadol < opioids
(morphine, oxycodone, hydromorphone).
- Requesting a lesser dose of the same medication IF
ORDERED.
- Requesting a less intrusive route of administration
if both routes are prescribed by the provider (PO <
IV).
10/27/24 17:57
Code Status As Directed
Resuscitation Status: Full Code
Bisacodyl [Dulcolax] 10 mg RECTAL [id number] PRN
Docusate W/Senna [Senokot-S] 1 tablet PO BIDPRN PRN
Polyethylene Glycol Powder [Miralax] 17 grams PO DAILYPRN PRN
10/27/24 17:58
Activity As Directed
Activity Level: As Tolerated
Vital Signs As Directed
Frequency: Per unit guidelines
10/27/24 18:04
Dextrose 50%-Water [Dextrose 50% Syringe] 12.5 grams IV [id number] PRN
Glucagon [GlucaGen] 1 mg IM PRN PRN
Bedside Glucose Monitoring As Directed
Frequency: AC&HS
Additional Instructions:: Change to q6h if pt on TPN, tube feeding or not eating
Speech Therapy Eval & Treat Routine
10/27/24 19:28
Acetaminophen [Tylenol] 650 mg PO Q6HPRN PRN MILD PAIN
10/27/24 19:28
IRAD CONSULT Routine
Consulting Provider: Ton Daniel
Was physician already notified: Yes
Procedure being ordered, including laterality if applicable: thoracentesis
Acknowledgement that appropriate orders are entered: Yes
DX Deep Vein Thrombosis Video Routine
10/27/24 19:30
Vancomycin [Vancocin] 1,000 mg CEFTAZidime [Fortaz] 2,000 mg PERIT. DIALYSIS w/ D 2.5 % [Delflex 2.5% Low Ca/Low Mag] 2,000 ml INTRAPERIT ONCE
10/27/24 20:00
CEFTAZidime [Fortaz] 1,000 mg IV Q24H
Carvedilol [Coreg] 3.125 mg PO BID
Heparin 5,000 units SC Q12
Potassium Chloride [KCl] 20 meq PO BID
Tamsulosin [Flomax] 0.4 mg PO BID
10/27/24 22:00
Gentamicin [Gentamicin 0.1% Cream] See Dose Instructions TOPICAL HS
Midodrine [ProAmatine] 15 mg PO TID
10/28/24 05:17
Basic Metabolic Panel IN AM
Complete Blood Count/No Diff IN AM
Glycohemoglobin (HgbA1c) IN AM
10/28/24 06:00
Levothyroxine [Synthroid] 50 mcg PO DAILY@0600
10/28/24 07:30
Calcium Acetate [Phoslo] 667 mg PO AC
Insulin Aspart Corrective Low [Novolog Flexpen-Low Resistance] See Protocol SC AC
10/28/24 08:00
Atorvastatin [Lipitor] 10 mg PO DAILY
Eplerenone [Inspra] 12.5 mg PO DAILY
Pantoprazole [Protonix] 40 mg PO DAILY
Renal Cap [Nephrocap] 1 capsule PO DAILY
10/30/24 11:00
DC Protocol for Telemetry ONCE
Abnormal Lab Results
10/27/24 10/27/24
13:51 14:31
RBC 3.61 L 10^6/uL
(4.70-6.10)
Hgb 10.9 L g/dL
(13.0-18.0)
Hct 32.4 L %
(39.0-52.0)
RDW 14.9 H %
(11.5-14.5)
Abs Immat Gran (auto) 0.2 H 10^3/uL
(0-0.05)
Absolute Monos (auto) 0.8 H 10^3/uL
(0.1-0.6)
Immature Gran % 2.6 H %
(0-0.5)
Lymphocytes % 19.1 L %
(20.5-51.1)
Monocytes % 10.4 H %
(1.7-9.3)
Sodium 131 L mmol/L
(135-145)
Potassium 3.1 L mmol/L
(3.5-5.1)
Chloride 95 L mmol/L
(98-107)
Carbon Dioxide 31 H mmol/L
(22-30)
BUN 22 H mg/dl
(9-20)
Creatinine 5.1 H* mg/dL
(0.7-1.3)
Glucose 111 H mg/dl
(70-99)
Calcium 8.3 L mg/dl
(8.4-10.2)
Troponin I 0.067 H* ng/ml
Total Protein 5.4 L g/dl
(6.3-8.2)
Albumin 2.5 L g/dl
(3.5-5.0)
10/27/24 13:51
10/27/24 13:51
Vital Signs
Initial and Last Documented VS:
Initial Vital Signs
Temp Pulse Resp BP Pulse Ox
97.6 F 67 26 78/65 98
10/27/24 13:28 10/27/24 13:28 10/27/24 13:28 10/27/24 13:28 10/27/24 13:28
Last Documented Vital Signs
Temp Pulse Resp BP Pulse Ox
97.7 F 70 23 85/58 94
10/28/24 15:19 10/28/24 17:30 10/28/24 17:30 10/28/24 16:34 10/28/24 10:37
<Anselmo Currie PA-C - Last Filed: 10/28/24 19:11>
MDM/Problems Addressed
Differential Diagnosis Includes:
Volume overload
Cardiomyopathy
Valvular dysfunction
ACS
Pneumonia
CHF
Bacteremia
MDM/Problems Addressed:
79-year-old male presented to the ER for evaluation of increasing shortness of breath, reportedly had outpatient imaging yesterday which showed pleural effusions, patient states overnight became acutely short of breath and needed to stand to
alleviate the symptoms which did seem to help. Patient currently hemodynamically stable. Will obtain imaging and labs. Disposition pending. I did attempt to contact patient's ethnic origins teacher, Dr. Pierson, who has been managing patient's medications
but was unsuccessful in speaking with her.
Chronic conditions affecting care: Kidney disease
Acute Exacerbation and/or Progression of Chronic Illness: Kidney disease
<Anselmo Currie PA-C - Last Filed: 10/28/24 19:11>
*Pulse Oximetry
SaO2: 98
Oxygen Mode of Delivery: Room air
Patient hypoxic: no
*Civil Drafting Technician Interpretation
Rate: normal
Heart Rate: 84
Rhythm: sinus
*Critical Care Note
Total Time (30-74mins, 75-104mins- exclusive of procedures): Not Applicable
Data Reviewed
Review of Other/Old Records Reveals: Labs, Records and Discharge Summary
<Anselmo Currie PA-C - Last Filed: 10/28/24 19:11>
Comment
Comment:
Per Dr. Pierson:
on vanco and ceftazadime 2 days ago
gram neg rods peritoneal fluid - Pseduomonas oryzihabitans pansensitive, 2nd gram neg not resulted as of yet
CT scan shows free air, seen by surgery yesterday who felt related to PD and did not need urgent surgery
Dr. Pierson . Call with questions
Patient Management
Discussion with other providers: Hospitalist
ED Attending Note
<TONYA Lopez Last Filed: 10/28/24 19:11>
-
Portions of this chart may have been created with voice recognition software.� Occasional wrong word or��sound alike� substitutions may have occurred due to the inherent limitations of voice recognition software.
<eMlany De Los Santos, DO - Last Filed: 10/27/24 20:25>
ED Attending Note
Patient seen and examined by attending physician: Yes
I performed the substantive portion of visit, reviewed & personally made and approve the management plan that is documented in note by myself or KAELA.: Yes
I performed a history and physical exam of patient and discussed management with resident, I reviewed resident's note and agree with documented findings and plan of care.: Yes
ED Attending Note:
79-year-old male presents the ER for evaluation of worsening dyspnea. Patient does home peritoneal dialysis and is currently using antibiotics given concern for peritonitis. Patient states that he has had difficulty emptying all of the peritoneal
fluid off of his belly and is concerned that this may be contributing to his abdominal discomfort and worsening shortness of breath. Vital signs reviewed, patient is awake, alert, appears chronically ill but in no acute distress, heart regular rate
and rhythm without murmurs or ectopy, lungs with diminished air movement bilateral bases, clear in the apices, no increased work of breathing, abdomen is soft with mild distention, positive fluid wave, PD catheter present right lower quadrant which
is clean dry and intact, GCS is 15. I reviewed with patient and family member present at bedside all test results along with plan for admission. Physician inventory assistant was able to review full patient presentation and current outpatient treatment with
his ethnic origins teacher who would also recommend admission for further assessment of patient's fluid status. Patient was admitted to the hospitalist in stable condition.
Discharge Plan
Departure
Patient Disposition: Admit
Date of Disposition: 10/27/24
Time of Disposition: 15:41
Presentation/result/management discussed w/ accepting MD/DO: Hospitalist
Discharge Problem:
Bilateral pleural effusion, Shortness of breath, Peritonitis
Interventions
Interventions:
*Risk Screen - Suicide Last Done: 10/27/24 13:28
*General Assessment Last Done: 10/27/24 13:28
*Neglect/Abuse Screening Last Done: 10/27/24 13:28
*ED- Fall Risk Assessment Last Done: 10/27/24 13:51
*ED COVID-19 Vaccine History Last Done: 10/27/24 13:51
*Nursing Disposition Last Done: 10/27/24 19:44
ED- Cardiac Assessment Last Done: 10/27/24 14:58
ED- Pulmonary Assessment Last Done: 10/27/24 14:58
Discharge Date and Time
Discharge Date/Time: 10/27/24 19:45
[2024-10-27 14:51] LABS: ALT (SGPT) 18 U/L (0-50); AST (SGOT) 22 U/L (17-59); Albumin 2.5 g/dl (3.5-5.0); Alkaline Phosphatase 124 U/L (38-126); Blood Urea Nitrogen 22 mg/dl (9-20); Calcium 8.3 mg/dl (8.4-10.2); Carbon Dioxide 31 mmol/L (22-30); Chloride 95 mmol/L (98-107); Estimated Creatinine Clearance 13 ml/min; Glucose 111 mg/dl (70-99); Potassium 3.1 mmol/L (3.5-5.1); Sodium 131 mmol/L (135-145); Total Protein 5.4 g/dl (6.3-8.2); eGFR 10.97
[2024-10-27 15:24] LABS: Troponin I 0.067 ng/ml
--- NOTE | 2024-10-27 16:54 | W.CON.NEPH ---
Consultation
-
Date/Time Consultation Requested: October 27, 2024 at 4:30 PM
Date/Time Consultation Performed: October 27, 2024 at 4:50 PM
Requesting Provider: Anselmo Currie
Performing Provider: Dr. Marin
Reason for Consultation: ESRD on peritoneal
Medical History
-
Chief Complaint: ESRD
History of Present Illness:
The patient is a 79-year-old male with a past medical history of end-stage renal disease maintained on peritoneal dialysis. He has a history of chronic hypotension and is maintained on high-dose midodrine 15 mg 3 times daily. He is maintained
calcium acetate for his hyperphosphatemia and statin therapy for his dyslipidemia. He has a known history of diabetes and is maintained on insulin pump.
Presents to the hospital with shortness of breath.
He just started treatment for peritonitis on October 25 for what appears to be Pseudomonas.
We were consulted for his peritoneal dialysis management in the setting of CHF and peritonitis
Past Medical History
Ventricular Tachycardia
Atrial Fibrillation s/p PVI and MAZE procedure
ESRD on Peritoneal Dialysis
Chronic Hypotension
Diabetes Mellitus, Type II
Hyperphosphatemia
Hyperlipidemia
Hypothyroidism
BPH
GERD
Left upper extremity AV fistula
BiV ICD
Prostate Cancer s/p seed brachytherapy
Social History
Tobacco: Non-Smoker
Alcohol: None
Family History
Family History: Not Pertinent
Allergies / Home Medications
Allergy/AdvReac Type Severity Reaction Status Date / Time
teds stocking Allergy blisters Uncoded 10/27/24 13:34
�Medication �Instructions �Recorded �Confirmed �Type
atorvastatin 10 mg tablet 10 mg PO DAILY High Cholesterol 03/13/16 10/27/24 History
eplerenone 25 mg tablet 12.5 mg PO DAILY Fluid 03/13/16 10/27/24 History
Retention/Swelling
levothyroxine 50 mcg tablet 50 mcg PO DAILY Thyroid 11/05/21 10/27/24 History
pantoprazole 40 mg tablet,delayed 40 mg PO DAILY Gastrointestinal 11/05/21 10/27/24 History
release Issue
tamsulosin 0.4 mg capsule (Flomax) 0.4 mg PO BID Urinary Issue 11/25/21 10/27/24 History
calcium acetate 667 mg tablet 667 mg PO AC 08/03/23 10/27/24 History
midodrine 5 mg tablet 15 mg PO TID Blood Pressure 08/03/23 10/27/24 History
carvedilol 3.125 mg tablet 3.125 mg PO BID Blood Pressure 06/07/24 10/27/24 History
ergocalciferol (vitamin D2) 1,250 1,250 mcg PO QMONTH Supplement 06/07/24 10/27/24 History
mcg (50,000 unit) capsule
vitamin B complex-vitamin C-folic 1 tab PO DAILY Supplement 06/07/24 10/27/24 History
acid 0.8 mg tablet (Leah-Wade)
Patient Own Insulin 1 sliding scale dose SC .VIA 10/27/24 10/27/24 History
NOVOLOG
acetaminophen 325 mg tablet 650 mg PO Q6HPRN PRN MILD PAIN 10/27/24 10/27/24 History
(Tylenol)
gentamicin 0.1 % topical cream 1 applic topical HS WOUND SITE ON 10/27/24 10/27/24 History
STOAMCH
potassium chloride 20 mEq 20 meq PO BID 10/27/24 10/27/24 History
tablet,extended release
torsemide 20 mg tablet 20 mg PO DAILY 10/27/24 10/27/24 History
Review of Systems
-
Mild shortness of breath no chest pain no abdominal pain
All other systems: Negative unless noted
Physical Exam
Vital Signs
Vital Signs
Temp Pulse Resp BP Pulse Ox
97.6 F 70 16 89/69 95
10/27/24 13:28 10/27/24 15:00 10/27/24 15:00 10/27/24 14:31 10/27/24 15:00
Lab Results
WBC 7.7 10^3/uL (4.8-10.8) 10/27/24 13:51
RBC 3.61 10^6/uL (4.70-6.10) L 10/27/24 13:51
Hgb 10.9 g/dL (13.0-18.0) L 10/27/24 13:51
Hct 32.4 % (39.0-52.0) L 10/27/24 13:51
Plt Count 193 10^3/uL (130-400) 10/27/24 13:51
Sodium 131 mmol/L (135-145) L 10/27/24 13:51
Potassium 3.1 mmol/L (3.5-5.1) L 10/27/24 13:51
Chloride 95 mmol/L (98-107) L 10/27/24 13:51
Carbon Dioxide 31 mmol/L (22-30) H 10/27/24 13:51
BUN 22 mg/dl (9-20) H 10/27/24 13:51
Creatinine 5.1 mg/dL (0.7-1.3) H* 10/27/24 13:51
eGFR 10.97 10/27/24 13:51
Glucose 111 mg/dl (70-99) H 10/27/24 13:51
Calcium 8.3 mg/dl (8.4-10.2) L 10/27/24 13:51
Zwz-P-Skqxculclkt Pept > 18694 pg/ml 10/27/24 14:31
Albumin 2.5 g/dl (3.5-5.0) L 10/27/24 13:51
Physical Exam
General no acute distress
HEENT no cephalic atraumatic extraocular muscle intact no scleral icterus no JVD neck supple
lungs coarse breath sounds decreased on the right lower lobe with wheezing and rales diffusely more so on the left
heart regular S1-S2 positive
abdomen soft nontender positive bowel sounds
extremities +3 edema with venous stasis changes
Neurologically nonfocal alert and oriented x 3
Skin no lesions no abrasions no petechiae
Psych normal affect no bizarre behavior
Data Reviewed
-
Radiology: Image Personally Visualized and interpreted
Labs: Labs Reviewed by me, Discussed with Physician, Discussed with Patient and Discussed with Family
Assessment/Plan
-
Impression:
ESRD on peritoneal dialysis
Peritonitis= diagnosed 10/25/2024 outpatient with Pseudomonas
History of ischemic cardiomyopathy (EF ~25%) /ventricular tachycardia status post BiV ICD= does not appear in acute CHF
History of atrial fibrillation status post PVI and maze procedure
History of prostate cancer status post seed brachytherapy
History of lung cancer
Hypothyroidism
Chronic hypotension on high dose midodrine
Anemia
Hyperphosphatemia
Pleural effusion
Plan:
Patient cycler 12 hour treatments times six exchanges with 2.2 L.
Manual exchange here in hospital Q6
antibiotics intraperitoneal with six-hour dwell
will get final cultures from outpatient setting
Pseudomonas reported
dialysis at [facility]
discuss this with the patient and his at bedside
--- NOTE | 2024-10-27 17:11 | HPS.HSE ---
Addendum entered and electronically signed by Mary Bradley MD 10/27/24 22:30:
Patient has insulin pump. Will continue insulin pump instead of ISS.
Addendum entered and electronically signed by Mary Bradley MD 10/27/24 18:51:
This is an addendum to H&P written by Vera Draper. �Patient seen and examined independently with resident.
79-year-old male past medical history of ESRD on peritoneal dialysis, ischemic cardiomyopathy, ventricular tachycardia with ICD, atrial fibrillation status post PVI and Maze procedure, chronic hypotension, type 2 diabetes, hyperlipidemia,
hypothyroidism, BPH, prostate cancer status post seed brachytherapy, right lung cancer s/p radiation presenting with shortness of breath since yesterday.�
He was diagnosed with PD peritonitis few weeks ago after having abdominal pain with negative cell counts at that time. �He was started on intraperitoneal vancomycin and ceftazidime a few days ago. �Since that time peritoneal dialysis fluid grew 2
species of gram-negative bacteria. �First species is Pseudomonas oryzihabitans that was pansensitive. �The second species has not resulted yet.
Yesterday he was sent to [facility] for outpatient CT scan of the abdomen pelvis which showed moderate free air not consistent with peritoneal dialysis. �He was recommended to go to the emergency room and went to [facility] and was seen
by general surgery who thought this was a benign finding and discharged him.
He has been having shortness of breath for past few days and unable to tolerate peritoneal dialysis and needing to stand up instead of sitting. �He was found to recently have a right pleural effusion.
Vital signs show blood pressure of 78/65-90 systolic which appears to be close to baseline.� Abdomen is benign on exam.�
Labs show chronic anemia stable 10.9. �Potassium 3.1. �Troponin 0.067. �Cardiac BNP greater than 27,000.
Chest x-ray shows small left and small to moderate right pleural effusions with associated atelectasis and or pneumonia.
Patient with acute dyspnea secondary to bilateral pleural effusions secondary to underlying ESRD/ischemic cardiomyopathy. �IR consulted for thoracentesis.
Patient with also with ongoing PD peritonitis growing 2 strains of gram-negative rods 1 of which is Pseudomonas oryzihabitans and the other species yet to be determined. �History is obtained from patient's property supervisor Dr. Pierson. �Patient was noted
to have free air on recent CT scan of the abdomen and pelvis and was seen by general surgery at [facility] who was not concerned for surgical source of peritonitis.
Continue ceftazidime and vancomycin intraperitoneally although does not seem to need vancomycin.� Patient's property supervisor Dr. Pierson would have knowledge of the second gram-negative specie. �Obtain records from [facility].
ID and nephrology consulted.
Original Note:
Family Physician
-
Family Physician: Deven Mantilla
Chief Complaint
-
SOB, fluid overload
History of Present Illness
79 year old male with history of ESRD on peritoneal dialysis, IDDM, prostate cancer, lung cancer of R lung (s/p radiation), hypothyroidism, ischemic cardiomyopathy, Hx of Vtach (with BiV ICD), Afib, GERD, who presents with SOB yesterday. He believes
this may have been induced by scheduling problems that interfered with his regular schedule of fluid cycling at home. He notes that he sticks to his dialysis schedule religiously.
He recently felt ill with generalized weakness and abdominal pain about 5 days ago. For suspicion of peritonitis, peritoneal fluid cultures revealed gram negative organisms, one of which was pseudomonas and the other still pending. He was initially
started on Vancomycin and Ceftazidime but vancomycin was discontinued after gram stain results. He has remained on Ceftazidime since Wednesday (ABX day 3 today).
He had CT ab/pel yesterday at [place] which showed moderate free air in abdomen not consistent with peritoneal dialysis. Repeat CT ab/pel with contrast was done at [facility] for concern for bowel perforation. He was also seen by general
surgery at [facility] and was discharged after he was evaluated and not deemed to have a surgical abdomen.
He reports poor oral intake, some swallowing difficulty (with coughing with pills and some food), and recent constipation. Denies fevers, new coughing, chest pain, nausea/vomiting, new urinary symptoms, diarrhea.
His property supervisor is Dr. Pierson.
Medical History
Past Medical History
Past Medical History: Reports Arrhythmia (Afib s/p watchman device, no anticoagulation. Hx of vtach with BiV ICD), CAD, GERD, Hypothyroidism, IDDM and Renal Failure (ESRD on peritoneal dialysis)
Past Surgical History: Reports Orthopedic (L ankle bone spur) and Other (Left upper extremity AV fistula)
Social History
Tobacco: Non-smoker
Alcohol: None
Drug: None
Living: With Family
Family History
Family History: Not pertinent
Allergies / Home Medications
Allergies reflects when Allergies were last updated in [facility].
Home Medications with original date entered in [facility]
Allergy/Medication List:
Allergies
Allergy/AdvReac Type Severity Reaction Status Date / Time
teds stocking Allergy blisters Uncoded 10/27/24 13:34
Home Medications
atorvastatin 10 mg tablet 10 mg PO DAILY High Cholesterol 03/13/16
eplerenone 25 mg tablet 12.5 mg PO DAILY Fluid Retention/Swelling 03/13/16
levothyroxine 50 mcg tablet 50 mcg PO DAILY Thyroid 11/05/21
pantoprazole 40 mg tablet,delayed release 40 mg PO DAILY Gastrointestinal Issue 11/05/21
tamsulosin 0.4 mg capsule (Flomax) 0.4 mg PO BID Urinary Issue 11/25/21
calcium acetate 667 mg tablet 667 mg PO AC 08/03/23
midodrine 5 mg tablet 15 mg PO TID Blood Pressure 08/03/23
carvedilol 3.125 mg tablet 3.125 mg PO BID Blood Pressure 06/07/24
ergocalciferol (vitamin D2) 1,250 mcg (50,000 unit) capsule 1,250 mcg PO QMONTH Supplement 06/07/24
vitamin B complex-vitamin C-folic acid 0.8 mg tablet (Leah-Wade) 1 tab PO DAILY Supplement 06/07/24
Patient Own Insulin 1 sliding scale dose SC .VIA NOVOLOG 10/27/24
acetaminophen 325 mg tablet (Tylenol) 650 mg PO Q6HPRN PRN MILD PAIN 10/27/24
gentamicin 0.1 % topical cream 1 applic topical HS WOUND SITE ON STOAMCH 10/27/24
potassium chloride 20 mEq tablet,extended release 20 meq PO BID 10/27/24
torsemide 20 mg tablet 20 mg PO DAILY 10/27/24
Review of Systems
-
History Source: Patient
Constitutional: Denies Fever
Respiratory: Reports Trouble Breathing; Denies Cough
Cardiac: Denies Chest Pain
Abdomen/GI: Reports Constipated; Denies Abdominal Pain, Nausea, Vomiting or Diarrhea
: Denies Dysuria, Difficulty Voiding or Bleeding
Physical Exam
Vital Signs
Vital Signs
Temp Pulse Resp BP Pulse Ox
97.6 F 70 16 89/69 95
10/27/24 13:28 10/27/24 15:00 10/27/24 15:00 10/27/24 14:31 10/27/24 15:00
Physical Exam
General: No Apparent Distress and Comfortable
HEENT: NormoCephalic and Anicteric
Respiratory: Clear and Decreased Breath Sounds (mildly in RLL); No Wheezes, Rales, Rhonchi or Crackles
Cardiac: S1/S2, Regular Rhythm and Peripheral Edema (bilateral 2+); No Murmur or Rub
GI: Soft, Non Tender and Non Distended
Musculoskeletal: No Clubbing, No Cyanosis, Edema, Left Lower Extremity (2+) and Edema, Right Lower Extremity (2+)
Skin: Warm and Dry
Neuro: Awake, Alert and Oriented
Psych: Calm
Laboratory Results
-
10/27/24 13:51
10/27/24 13:51
Laboratory Results
Total Bilirubin 0.7 mg/dl (0.2-1.3) 10/27/24 13:51
AST 22 U/L (17-59) 10/27/24 13:51
ALT 18 U/L (0-50) 10/27/24 13:51
Alkaline Phosphatase 124 U/L (38-126) 10/27/24 13:51
Troponin I 0.067 ng/ml H* 10/27/24 14:31
Impression/Plan
-
IMPRESSION:
79 year old male with history of ESRD on peritoneal dialysis, IDDM, prostate cancer, lung cancer of R lung (s/p radiation), hypothyroidism, ischemic cardiomyopathy, Hx of Vtach (with BiV ICD), Afib, GERD, who presents with bilateral pleural
effusion.
PLAN:
Pleural effusion:
Likely secondary to fluid overload from kidney failure.
SOB. CXR with small left and small to moderate right pleural effusion with atelectasis and/or pneumonia. No overt pulmonary congestion
Pro-BNP 27,000 in context of ESRD
- Admit to tele
- IRAD consult to assess for thoracentesis
- nephro consult. Appreciate recs/peritoneal dialysis
Peritonitis associated with peritoneal dialysis:
- Peritoneal fluid culture grew pseudomonas, other culture information pending. Await final peritoneal fluid culture results from outpt setting.
- Day 3 of IP ceftazidime. Continue. Nephro to dose
- ID consult
- Will get medical records from [facility] for recent CT ab/pel, ED visit and gen surgery assessment
- Await blood cultures
Hyponatremia:
- Hypovolemic, Secondary to ESRD
- Expect improvement with dialysis
Hypokalemia:
- Replete
Dysphagia:
- Speech swallow eval
Insulin dependent diabetes mellitus:
- Low res insukin sliding scale
- Accuchecks
Afib:
- On no anticoagulation. S/P watchman
- Continue carvedilol
Chronic hypotension:
- continue midodrine
Hx of prostate cancer:
- Continue tamsulosin
Hx of Vtach; BiV ICD device
Ischemic cardiomyopathy (HFrEF)
GERD; Continue PPI
Hypothyroidism: Continue levothyroxine
Hx of lung Ca: Right lung, s/p radiation. No currently in treatment
ESRD: On peritoneal dialysis
DVT ppx: Heparin sq
Code status: Full Code
[2024-10-27] MEDS: COREG 3.125 MG PO (21:41)
[2024-10-27] MEDS: FLOMAX 0.4 MG PO (21:42)
[2024-10-27] MEDS: KCL 20 MEQ PO (21:43)
[2024-10-27] MEDS: [UNRECOGNIZED DRUG - MIXTURE] INTRAPERIT ×2 (22:16)
[2024-10-27] MEDS: [UNRECOGNIZED DRUG - MIXTURE] 2030 MG INTRAPERIT ×2 (23:20)
[2024-10-27 23:36] LABS: Glucose - Point of Care 148 mg/dl (70-99)
--- NOTE | 2024-10-28 00:23 | PTCARENOTE ---
Pt received from ED RN. Pt voicing disagreement with ordered care interventions. Pt uncooperative with care interventions this RN is administering. Doctor Kirk to bedside to review plan of care with patient. Emotional support and education on
purpose and necessity of interventions provided to Pt from this RN.
[2024-10-28 05:35] LABS: Hematocrit 28.5 % (39.0-52.0); Hemoglobin 9.8 g/dL (13.0-18.0); Mean Corp Hgb Conc. 34.4 g/dL (33.0-37.0); Mean Corpuscular Volume 89.3 fL (80.0-94.0); Platelet Count 158 10^3/uL (130-400); Red Cell Dist. Width 14.6 % (11.5-14.5)
[2024-10-28 05:58] VITALS: BP 86/53
[2024-10-28 06:01] LABS: Blood Urea Nitrogen 25 mg/dl (9-20); Calcium 8.3 mg/dl (8.4-10.2); Carbon Dioxide 28 mmol/L (22-30); Chloride 96 mmol/L (98-107); Estimated Creatinine Clearance 13 ml/min; Glucose 115 mg/dl (70-99); LDH 172 U/L (120-246); Potassium 3.0 mmol/L (3.5-5.1); Sodium 130 mmol/L (135-145); eGFR 11.24
[2024-10-28] MEDS: SYNTHROID 50 MCG PO (07:36)
[2024-10-28] MEDS: PATIENT'S OWN INSULIN PUMP SC ×2 (07:52→16:33)
[2024-10-28 08:05] VITALS: BP 86/59
[2024-10-28 08:05] LABS: Glucose - Point of Care 335 mg/dl (70-99)
[2024-10-28 09:13] LABS: Glycohemoglobin (HgbA1c) 5.6 % (4.0-5.6)
[2024-10-28] MEDS: PROTONIX 40 MG PO (09:26)
[2024-10-28] MEDS: NEPHROCAP 1 CAPSULE PO (09:27)
[2024-10-28] MEDS: LIPITOR 10 MG PO (09:27)
[2024-10-28] MEDS: PHOSLO 667 MG PO ×2 (09:27→16:34)
[2024-10-28] MEDS: FLOMAX 0.4 MG PO (09:27)
[2024-10-28] MEDS: KCL 20 MEQ PO (09:33)
[2024-10-28] MEDS: COREG PO (09:56)
[2024-10-28] MEDS: PATIENT'S OWN INSULIN PUMP 2 UNITS SC (09:57)
[2024-10-28 10:00] VITALS: BP 89/62
--- NOTE | 2024-10-28 10:21 | PTCARENOTE ---
Pt received from nightshift RN. Ox3, anxious and very particular. 100% AV paced on tele, +1 LE edema with PVD. Breath sounds diminished at the bases, he is 94% on RA. He complains of orthopnea but currently appears comfortable. Oliguric. Q6H PD
treatments, next drain set for 1200. He manages his blood sugar with his own insulin pump. He had a spike in his BG this morning after filling. Pt OOB to the chair with minimal difficulty, he is very motivated to leave so that he can get back to his
routines.
--- NOTE | 2024-10-28 12:30 | W.PN.HOSP.TC ---
Today's Communication/Plan
-
get peritoneal fluid culture data
holding coreg/eplerenone
IR consulted for thoracentesis
PD per nephro
Assessment / Plan
Assessment / Plan
1. Bilateral pleural effusion
- Patient was dyspneic from it not hypoxic
- Chest x-ray reviewed and right-sided moderate collection
- Interventional radiology has been consulted for thoracentesis
- Patient with previous history of pleural effusion within the requirement of thoracentesis
2. End-stage renal disease on peritoneal dialysis
Hypervolemia
- Patient peritoneal dialysis schedule was altered due to ER visit at [facility]
- Nephrology consulted for further help
3. Peritonitis
- Reported diagnosis of bacterial peritonitis on Wednesday. One of the identified organism is Pseudomonas.
- patient was instilled with vancomycin/Ceftazidime in the 2 peritoneal dialysis catheter
- Will need to get peritoneal fluid culture information from the office
- ID help has been requested
4. Pneumoperitoneum
- Patient require surgical evaluation in [facility] for possible concern of perforated viscus/pneumoperitoneum found on outpatient CT abdomen pelvis
- Based on clinical examination patient was ruled out of having any perforated viscus and was discharged from [facility] on 10/27
- Records reviewed through [facility] physician access link
5. Hyponatremia
Hypokalemia
- With ESRD/PD, avoid over replating potassium
6. Paroxysmal atrial fibrillation
Status post Watchman device
- Not on anticoagulation. Rate controlled on carvedilol
7. Chronic Hypotension
Chronic systolic congestive heart
History of ischemic cardiomyopathy
History of VT status post ICD
- Patient blood pressure remains on lower side
- Will hold eplerenone/carvedilol for today and will resume back as appropriate
- Also getting midodrine 15 mg 3 times daily, to be continued
Hypothyroidism
Gastroesophageal reflux disease
History of right lung cancer s/p radiation
DVT PPX - Full code
Heparin subq
Outside hospital records reviewed through pain physician access link
Total time spent 60 minutes
Anticipated Discharge: > 48 hours
Subjective/Interval History
-
Date of Service: October 28, 2024
Resting comfortably in bed
Denies any abdominal pain/nausea/vomiting
Afebrile overnight
Not hypoxic. Denies excessive shortness of breath
Objective Data
-
Labs:
Laboratory Results
10/28/24
05:17
WBC 6.1
Hgb 9.8 L
Hct 28.5 L
Plt Count 158
Sodium 130 L
Potassium 3.0 L
Chloride 96 L
Carbon Dioxide 28
BUN 25 H
Creatinine 5.0 H*
Glucose 115 H
Calcium 8.3 L
Vital Signs:
Vital Signs
Temp Pulse Resp BP Pulse Ox
97.5 F 74 23 89/62 94
10/28/24 11:38 10/28/24 10:30 10/28/24 10:30 10/28/24 10:00 10/28/24 10:37
I&O
10/27/24 10/28/24 10/29/24
06:59 06:59 06:59
Output Total 100 / 100
Balance -100 / -100
Review of Systems
-
Respiratory: Reports No Symptoms
Cardiac: Reports No Symptoms
Abdomen/GI: Reports No Symptoms
Physical Exam
-
General: Comfortable
HEENT: Negative Oxygen
Respiratory: Clear to Auscultation
Cardiac: Regular Rhythm and S1/S2; Negative Murmur or Rub
GI: Soft, Nontender and Nondistended
Neuro: Awake, Alert, Oriented, No Motor Deficits and Nonfocal/Grossly Intact
Psych: Calm
--- NOTE | 2024-10-28 13:43 | CON.ID ---
Consultation
-
Date/Time Consultation Requested: 10/27/2024 1809
Date/Time Consultation Performed: 10/28/2024 1330
Requesting Provider: Dr. Draper
Performing Provider: Dr. Torres
Reason for Consultation: PD associated peritonitis
Chief Complaint / Past History
History of Present Illness
Blanco Bejarano is a 79-year-old man being evaluated at the request of Dr. Draper regarding PD associated peritonitis. History is obtained from chart review, along with patient interview.
The patient has a significant past medical history of ESRD maintained on peritoneal dialysis for the past 2 years. He reports that approximately 1 week ago he developed some abdominal discomfort which increased over the weekend and he began to feel
poorly. On Wednesday morning he went to the dialysis center for evaluation and a culture was sent from his PD catheter. He returned on Wednesday and received a dose of Fortaz and Fortaz was ordered for his home PD administration. Over the next 24
hours he noted some improvement in the pain, but there was concern for possible perforation and he was sent for CT scanning which showed some air and he was then sent to [facility] for further evaluation where he was evaluated by surgery
and his belly was felt to be benign. Once home, he developed increasing shortness of breath and he presented to the emergency room here at [facility] for further evaluation. Cultures from the PD fluid ultimately have grown out to
gram-negative rods, 1 of which is a Pseudomonas species. Overall, he is feeling improved although somewhat tired given a lack of sleep. He denies any fevers or chills. He denies any issues with his Tenckhoff catheter.
Past History
Additional Past Medical History:
Ventricular Tachycardia
Atrial Fibrillation s/p PVI and MAZE procedure
ESRD on Peritoneal Dialysis
Chronic Hypotension
Diabetes Mellitus, Type II
Hyperphosphatemia
Hyperlipidemia
Hypothyroidism
BPH
GERD
Left upper extremity AV fistula
BiV ICD
Prostate Cancer s/p seed brachytherapy
Allergy History:
teds stocking Allergy (Uncoded 10/27/24 13:34)
blisters
Medications Reviewed: Yes
Current Antibiotics:
None
Vancomycin intraperitoneal x 1
Fortaz 2gm intraperitoneal x 1
Social History
Tobacco: Non-Smoker
Alcohol: None
Drug: None
Employment: Retired
Family History
Family History: Not Pertinent
Review of Systems
Vital Signs
Temp Pulse Resp BP Pulse Ox
97.5 F 74 23 89/62 94
10/28/24 11:38 10/28/24 10:30 10/28/24 10:30 10/28/24 10:00 10/28/24 10:37
Physical Exam
Physical Exam
Constitutional: No Acute Distress, Comfortable and Non-toxic
Eyes: No Conjunctival Hemorrhage and Sclera Anicteric
Oral: No Thrush and No Ulcers
Cardiovascular: S1/S2; Negative S3/S4
Pulmonary: Clear and Non Labored; Negative Wheezes or Rales
Gastrointestinal: Soft, Distended, Normal Bowel Sounds, No Rebound, No Guarding and Other (PD catheter site without surrounding erythema)
Neurological: Awake and Alert
Psychological: Calm
Lab / Diagnostic Study Results
10/28/24 05:17
10/28/24 05:17
Abs Immat Gran (auto) 0.2 10^3/uL (0-0.05) H 10/27/24 13:51
Absolute Neuts (auto) 5.0 10^3/uL (1.4-6.5) 10/27/24 13:51
Absolute Lymphs (auto) 1.5 10^3/uL (1.2-3.4) 10/27/24 13:51
Absolute Monos (auto) 0.8 10^3/uL (0.1-0.6) H 10/27/24 13:51
Absolute Basos (auto) 0.0 10^3/uL (0-0.2) 10/27/24 13:51
Immature Gran % 2.6 % (0-0.5) H 10/27/24 13:51
Neutrophils % 64.3 % (42.2-75.2) 10/27/24 13:51
Lymphocytes % 19.1 % (20.5-51.1) L 10/27/24 13:51
Monocytes % 10.4 % (1.7-9.3) H 10/27/24 13:51
Eosinophils % 3.1 % (0-6) 10/27/24 13:51
Basophils % 0.5 % (0-2) 10/27/24 13:51
Microbiology Results
Micro:
10/27/24 14:31 Blood Culture - Pending
Blood/Venous
10/27/24 14:31 Blood Culture - Pending
Blood/Venous
Imaging:
10/27/2024 CXR (2 view): small left and small to moderate right pleural effusion with associated atelectasis.
Assessment / Plan
PD associated peritonitis
- Cultures with Pseudomonas species
- Clinical improvement on Fortaz
Shortness of breath
Pleural effusion
Ventricular Tachycardia
Atrial Fibrillation s/p PVI and MAZE procedure
ESRD on Peritoneal Dialysis
Chronic Hypotension
Diabetes Mellitus, Type II
Hyperphosphatemia
Hyperlipidemia
Hypothyroidism
BPH
GERD
Recommendations:
Continue with intraperitoneal Fortaz. Case discussed with Nephrology who will be writing orders in combination with usual PD orders.
Monitor white count and temperature curve.
Will review full sensitivities once obtained
Care Review
Plan reviewed with: Physician (Nephrology)
[2024-10-28 14:27] LABS: Glucose - Point of Care 121 mg/dl (70-99)
--- NOTE | 2024-10-28 15:50 | CM ---
manager proposal reviewed patient's chart and met with patient and patient lives with his spouse in a 2 story home with 2 steps to enter, patient is independent with adl's and uses a cane with ambulation, patient is on peritoneal HD.
PCP: Adriel Adam
Pharmacy: [facility] in [place].
--- NOTE | 2024-10-28 16:06 | W.PN.NEPH.PH ---
Today's Communication / Plan
-
PD with antibiotics
Assessment/Plan
-
Impression:
ESRD on peritoneal dialysis
Peritonitis= diagnosed 10/25/2024 outpatient with Pseudomonas
History of ischemic cardiomyopathy (EF ~25%) /ventricular tachycardia status post BiV ICD= does not appear in acute CHF
History of atrial fibrillation status post PVI and maze procedure
History of prostate cancer status post seed brachytherapy
History of lung cancer
Hypothyroidism
Chronic hypotension on high dose midodrine
Anemia
Hyperphosphatemia
Pleural effusion
Plan:
Patient cycler 12 hour treatments times six exchanges with 2.2 L.
Manual exchange here in hospital Q6
antibiotics intraperitoneal with six-hour dwell
will get final cultures from outpatient setting
Pseudomonas reported
dialysis at [facility]
Will continue with ceftazidime IP and discontinue Vanco
Will do 2 g every other day with next dose Wednesday night
Discussed this with CT and hospital medicine
I will place the antibiotic orders
Pending IR evaluation for pleural effusions
-
-
Date of Service: October 28, 2024
CC / HPI / ROS
-
Chief Complaint:
Presented with shortness of breath
History of Present Illness:
ESRD on peritoneal dialysis outpatient peritonitis diagnosed
Review of Systems:
No chest pain or shortness of breath
Labs
-
Labs:
WBC 6.1 10^3/uL (4.8-10.8) 10/28/24 05:17
RBC 3.19 10^6/uL (4.70-6.10) L 10/28/24 05:17
Hgb 9.8 g/dL (13.0-18.0) L 10/28/24 05:17
Hct 28.5 % (39.0-52.0) L 10/28/24 05:17
Plt Count 158 10^3/uL (130-400) 10/28/24 05:17
Sodium 130 mmol/L (135-145) L 10/28/24 05:17
Potassium 3.0 mmol/L (3.5-5.1) L 10/28/24 05:17
Chloride 96 mmol/L (98-107) L 10/28/24 05:17
Carbon Dioxide 28 mmol/L (22-30) 10/28/24 05:17
BUN 25 mg/dl (9-20) H 10/28/24 05:17
Creatinine 5.0 mg/dL (0.7-1.3) H* 10/28/24 05:17
eGFR 11.24 10/28/24 05:17
Glucose 115 mg/dl (70-99) H 10/28/24 05:17
Calcium 8.3 mg/dl (8.4-10.2) L 10/28/24 05:17
Zbz-E-Ttbulblakyq Pept > 81339 pg/ml 10/27/24 14:31
Albumin 2.5 g/dl (3.5-5.0) L 10/27/24 13:51
Physical Exam
-
Vital Signs:
Vital Signs
Temp Pulse Resp BP Pulse Ox
97.7 F 74 23 89/62 94
10/28/24 15:19 10/28/24 10:30 10/28/24 10:30 10/28/24 10:00 10/28/24 10:37
Respiratory:: Bilateral: CTA
Lung Excursion:: Normal
Abdomen:: Soft
Bowel Sounds:: Normal
Extremity Edema:: +2: Bilateral:
[2024-10-28 16:32] VITALS: BP 85/58
[2024-10-28] MEDS: PHOSLO PO (16:39)
--- NOTE | 2024-10-29 12:13 | W.DCSUMMARY ---
Discharge Summary
Discharge Data
Date of Admission: 10/27/24
Date of Discharge: 10/28/24
-
Pending Results: No
Hospital Course
Discharging Physician : Dr Paul Lorenzo
Disposition : To home
Primary care physician : Dr Christopher Mantilla
Principal Discharge diagnosis :
Bilateral pleural effusion
Dyspnea
Suspected bacterial peritonitis
Chronic Discharge diagnosis :
End-stage renal disease on peritoneal dialysis
Pneumoperitoneum on imaging with ruled out perforated viscus
Paroxysmal atrial fibrillation
Chronic Hypotension
Chronic systolic congestive heart failure
History of ischemic cardiomyopathy
History of ventricular tachycardia
History of defibrillator placement
Hypothyroidism
Gastroesophageal reflux disease
History of right lung cancer s/p radiation
Hospital Course :
Patient is a 79-year-old male with admission past medical history came to ER with new onset of dyspnea. Patient apparently was in [facility] in [facility] after found to having pneumoperitoneum and questionable perforated viscus. Patient was
evaluated by surgery and was cleared for home discharge. Patient was noted to having new pleural effusion which outpatient physicians were trying to have tapped although patient started to having new dyspnea and was asked to come to ER. In ER
repeat x-ray showing patient having moderate collection on the right side patient was not hypoxic. Patient was admitted for further monitoring. There was question of patient also having volume overload and patient had round of peritoneal dialysis
with high consideration dialysate. Patient had improvement in symptoms and requested to be discharged with outpatient thoracentesis. Patient was discharged home at that point.
Of note patient also been treated with intra peritoneal instillation of antibiotic for possible bacterial peritonitis which is managed by patient outpatient physicians. ID evaluated and recommended to continue will follow-up with outpatient
therapy. Of note I did not have access to outpatient records patient peritoneal fluid culture that was collected in office setting earlier in the week.
Important imaging findings :
None
Procedure findings :
None
Discharge Plan
-
Patient Disposition: Home (Routine Discharge)
Discharge Diagnosis/Procedures: Pleural effusion, Volume overload
Condition: Fair
Additional Diets: Low Potassium diet
Activity: As tolerated
Driving Restrictions: As prior to admission
Bathing Restrictions: OK to Shower
Referrals:
Deven Mantilla MD [Family Provider, Cardiology] - in one week
Prescriptions:
Continued
atorvastatin 10 MG tablet
10 mg PO DAILY
eplerenone 25 MG tablet
12.5 mg PO DAILY
levothyroxine 50 mcg Tablet
50 mcg PO DAILY
pantoprazole 40 mg Tablet,Delayed Release (Dr/Ec)
40 mg PO DAILY
tamsulosin [Flomax] 0.4 mg Capsule
0.4 mg PO BID
midodrine 5 mg Tablet
15 mg PO TID
calcium acetate 667 mg Tablet
667 mg PO AC
carvedilol 3.125 mg tablet
3.125 mg PO BID
Leah-Wade 0.8 mg tablet
1 tab PO DAILY
ergocalciferol (vitamin D2) 1,250 mcg (50,000 unit) Capsule
1,250 mcg PO QMONTH
Patient Own Insulin
1 sliding scale dose SC .VIA NOVOLOG
acetaminophen [Tylenol] 325 mg Tablet
650 mg PO Q6HPRN PRN (Reason: MILD PAIN)
torsemide 20 mg Tablet
20 mg PO DAILY
gentamicin 0.1 % Cream
1 applic TOPICAL HS
potassium chloride 20 mEq Tablet Extended Release
20 meq PO BID
Discharge Orders:
Discharge Patient (As Directed); Ordered 10/28/24
Ordered By: Paul Lorenzo
Discharge Date and Time
Discharge Date/Time: 10/28/24 17:57
Print Language: WELSH
== END 2024-10-28 17:57 | disposition home or self-care (01) | DRG 186 ==
LOC: IMU 18:06
PROVIDERS: Physician Assistant Medical; Student in an Organized Health Care Education/Training Program; ADMITTING PHYSICIAN Hospitalist; ATTENDING PHYSICIAN Hospitalist; CONSULT PHYSICIAN Internal Medicine Infectious Disease; CONSULT PHYSICIAN Internal Medicine Nephrology; EMERGENCY PHYSICIAN Emergency Medicine; FAMILY PHYSICIAN Internal Medicine Cardiovascular Disease
DX: J90 Pleural effusion, not elsewhere classified (principal); K65.9 Peritonitis, unspecified; N18.6 End stage renal disease; T80.29XA Infection following other infusion, transfusion and therapeutic injection, initial encounter; I47.20 Ventricular tachycardia, unspecified; E87.1 Hypo-osmolality and hyponatremia; Y84.1 Kidney dialysis as the cause of abnormal reaction of the patient, or of later complication, without mention of misadventure at the time of the procedure; E11.22 Type 2 diabetes mellitus with diabetic chronic kidney disease; Z99.2 Dependence on renal dialysis; I95.89 Other hypotension; E03.9 Hypothyroidism, unspecified; I25.5 Ischemic cardiomyopathy; K21.9 Gastro-esophageal reflux disease without esophagitis; Z85.118 Personal history of other malignant neoplasm of bronchus and lung; Z92.3 Personal history of irradiation; Z79.890 Hormone replacement therapy; Z79.4 Long term (current) use of insulin; Z96.41 Presence of insulin pump (external) (internal); I48.91 Unspecified atrial fibrillation; Z95.818 Presence of other cardiac implants and grafts; D64.9 Anemia, unspecified; E78.00 Pure hypercholesterolemia, unspecified; E86.1 Hypovolemia; E87.6 Hypokalemia; I25.10 Atherosclerotic heart disease of native coronary artery without angina pectoris; N40.0 Benign prostatic hyperplasia without lower urinary tract symptoms; Z79.899 Other long term (current) drug therapy; Z85.46 Personal history of malignant neoplasm of prostate
CPT/HCPCS: 71046; 80048; 80053; 82962; 83036; 83615; 83880; 84484; 85025; 85027; 87040; 93005; 99285

== ENCOUNTER 2024-11-30 11:41 | Inpatient (IN) | payer MEDICARE, OTHER, SELFPAY ==
[2024-11-29] VITALS (27 sets, daily range): BP systolic 60–99; BP diastolic 37–68; BMI 22.6
--- NOTE | 2024-11-29 14:19 | ED.GENMED ---
History of Present Illness
General
Chief Complaint: Dehydration Symptoms
Time Seen by Provider: 11/29/24 14:18
History of Present Illness
History of Present Illness:
FOCUSED PAST MEDICAL HISTORY
- Dilated cardiomyopathy, ESRD on PD
REVIEW OF OLD RECORDS
- The patient was admitted here 1 month ago with bilateral pleural effusions and was being treated for bacterial peritonitis
Note:
CHIEF COMPLAINT(S)
Dehydration and recent peritoneal dialysis infection.
HISTORY OF PRESENT ILLNESS
The patient is a 79-year-old male with a history of peritoneal dialysis ongoing for the past two and a half years due to end-stage renal disease. He was not a candidate for hemodialysis because of a weak heart. He presents today with symptoms of
dehydration. Approximately one month ago, the patients dialysis team detected an intra-abdominal infection, for which he was prescribed antibiotics, administered intraperitoneally, to combat the infection. The antibiotic course lasted one month and
completed four days ago, following which cultures were taken, though results have not yet returned.
His baseline blood pressure is notably low, typically under 90 mmHg, and todays readings correlate with his usual baseline. The patient reports that his plateman recommended he visit the emergency department for intravenous fluid administration.
He has not had any further antibiotics after finishing his course four days ago.
ADDITIONAL HISTORY OBTAINED FROM SOURCES OTHER THAN PATIENT
The patients plateman recommended evaluation in the emergency department for intravenous fluid therapy.
EXTERNAL RECORDS REVIEWED
The physician intends to review the patients previous records to assess his typical blood pressure readings, as they are reportedly low at baseline.
CHRONIC MEDICAL CONDITIONS SIGNIFICANTLY AFFECTING CARE
End-stage renal disease requiring peritoneal dialysis.
Cardiomyopathy leading to weak heart and low blood pressure.
PHYSICAL EXAM
General: He is awake and alert, chronically ill-appearing
Skin: Venous stasis to both lower extremities
Head: Normocephalic, atraumatic.
Neck: Supple, trachea midline.
Eye Ears, Nose, Mouth, and Throat: Oral mucosa moist.
Cardiovascular: Normal peripheral perfusion, trace bilateral lower extremity edema.
Respiratory: Decreased breath sounds bilaterally, some mild conversational dyspnea
Gastrointestinal: PD catheter noted
Back: Normal range of motion, normal alignment.
Musculoskeletal: Normal range of motion, normal strength.
Neurological: Alert and oriented to person, place, time, and situation. No focal neurological deficit observed.
Psychiatric: Cooperative, appropriate mood and affect.
PLAN
Administer intravenous fluids as per cardiologists recommendation.
Follow up on culture results from the dialysis fluid to ensure clearance of infection.
Communicate with the plateman for further management plans.
DIFFERENTIAL DIAGNOSIS
The Differential Diagnosis includes, in no particular order and is not limited to:
1. Dehydration
2. Hypotension
3. Recurrent peritoneal infection
4. Cardiomyopathy
5. Electrolyte imbalance
6. Volume depletion leading to renal insufficiency
7. Intra-abdominal pathology
8. Medication side effect
9. Anemia
10. Sepsis
RADIOLOGY
- Right greater than left small pleural effusions possibly somewhat improved compared to prior
EKG
- V paced 77
LABS
- White count 13.6 which is newly elevated, hemoglobin is 13.6 which is most likely hemoconcentrated, creatinine 5.9, potassium 3.9, sodium 128, initial lactic 4.3, BNP again markedly elevated
UPDATE
-SUMMARY OF ENCOUNTER
The patient, a 79-year-old male with a history of cardiomyopathy and end-stage renal disease on peritoneal dialysis, presented to the emergency department with dehydration concerns. He was recently treated for a bacterial infection related to his
dialysis. Upon evaluation, he was found to have an elevated lactic acid level and a newly elevated white blood cell count, raising the suspicion of an infectious process. Dr. Mantilla was consulted, and it was agreed to involve hospice for further
evaluation. The patient is agreeable to stay in the hospital overnight for monitoring, considering the potential infectious component and need for rehydration.
ASSESSMENT
The patient presents with dehydration, potential infection, and cardiomyopathy, complicating his end-stage renal disease management.
MANAGEMENT OF THE PATIENTS CARE WAS DISCUSSED WITH
Consultation with Dr. Mantilla regarding the involvement of hospice care and potential overnight hospital admission for monitoring.
PLAN
- Administer intravenous fluids for rehydration.
- Monitor vitals and lab results closely for any indications of infection progression.
- Hospice evaluation complete, coordinate further care in line with their recommendations.
- Keep the patient overnight for observation due to the elevated lactic acid and white blood cell count.
INDEPENDENT REVIEW OF LABS AND INTERPRETATION OF TESTS
My independent review indicates elevated lactic acid levels and a newly elevated white blood cell count, suggesting a possible infectious process or dehydration impact.
FOLLOW-UP INSTRUCTIONS
The patient will remain in the hospital for overnight observation, with hospice involved in the coordination of care.
MEDICAL DECISION MAKING
- Number and Complexity of Problems Addressed: Chronic conditions affecting care [cardiomyopathy and end-stage renal disease; dehydration, potential infection]
- Data:
Category 1
Clinical information was obtained from an independent historian.
Category 3
Discussion of management with Dr. Mantilla regarding hospice care evaluation and need for overnight observation.
DIAGNOSIS
- Dehydration (ICD-10: E86.0)
- Suspected infection secondary to bacterial parotitis (ICD-10: K11.22)
- Cardiomyopathy (ICD-10: I42.9)
- End-stage renal disease on dialysis (ICD-10: N18.6)
Suspect degree of dehydration he has been losing weight, as his hemoglobin is much higher than prior suggesting hemoconcentration, and his blood pressure rapidly improved with 500 mL of IV fluid going from systolic of 60 to 90. However there was
recent concern for bacterial peritonitis, his white count is newly elevated, and his lactic is over 4. Sepsis is still not ruled out. I discussed with Dr. Mantilla and we had hospice evaluate the patient in the Emergency Department to he will see
again tomorrow.
Past History
Past History
ED Past Medical History: Cancer and IDDM
ED Past Surgical History: Cardiac, Tonsilectomy and Urological
Social History
Tobacco: Non-smoker
Alcohol: None
Drug: None
Personal:
Living: with family
Employment: Retired
Phy Exam
Physical Exam
Physical Exam:
See HPI
Course
Orders/Labs/Results
Orders:
Orders
11/29/24 14:16
EKG [Electrocardiogram (*1)] Urgent
Reason for Study: Fatigue / Weakness
EKG- Treatment ONCE
11/29/24 14:20
0.9% Sodium Chloride 500 ml [Nss] 500 ml IV BOLUS
11/29/24 14:22
CMP [Comprehensive Metabolic Panel] Urgent
Complete Blood Count/With Diff Urgent
Lactic Acid Q4H
Comment: CANCEL 2nd LACTIC ACID IF 1st LACTIC ACID IS LESS THAN 2
NT-proBNP Urgent
Blood Culture Q30M
GUILLE Source: Blood/Venous
Specimen Description:
Blood Culture Q30M
GUILLE Source: Blood/Venous
Specimen Description:
11/29/24 14:28
CR Chest Portable - 1 View Urgent
Comment:
Reason For Exam: hypotension severe
Reason Study Needs to be Portable: Patient Unstable
11/29/24 15:04
CefTRIAXone [Rocephin] 1,000 mg IV NOW STA
11/29/24 15:27
Sterile Water [Sterile Water For Injection] 10 ml .ROUTE .STK-MED ONE
11/29/24 18:30
Lactic Acid Q4H
Comment: CANCEL 2nd LACTIC ACID IF 1st LACTIC ACID IS LESS THAN 2
Abnormal Lab Results
11/29/24
14:22
WBC 13.6 H 10^3/uL
(4.8-10.8)
RBC 4.53 L 10^6/uL
(4.70-6.10)
MCHC 32.3 L g/dL
(33.0-37.0)
RDW 15.6 H %
(11.5-14.5)
Abs Immat Gran (auto) 0.3 H 10^3/uL
(0-0.05)
Absolute Neuts (auto) 10.3 H 10^3/uL
(1.4-6.5)
Absolute Monos (auto) 1.1 H 10^3/uL
(0.1-0.6)
Immature Gran % 2.1 H %
(0-0.5)
Neutrophils % 75.7 H %
(42.2-75.2)
Lymphocytes % 13.0 L %
(20.5-51.1)
Sodium 128 L mmol/L
(135-145)
Chloride 96 L mmol/L
(98-107)
BUN 30 H mg/dl
(9-20)
Creatinine 5.9 H* mg/dL
(0.7-1.3)
Glucose 107 H mg/dl
(70-99)
Lactic Acid 4.3 H* mmol/L
(0.7-2.0)
Alkaline Phosphatase 166 H U/L
(38-126)
Total Protein 5.7 L g/dl
(6.3-8.2)
Albumin 2.5 L g/dl
(3.5-5.0)
11/29/24 14:22
11/29/24 14:22
Vital Signs
Initial and Last Documented VS:
Initial Vital Signs
Pulse Resp BP Pulse Ox
45 20 60/37 95
11/29/24 14:01 11/29/24 14:01 11/29/24 14:01 11/29/24 14:01
Last Documented Vital Signs
Pulse Resp BP Pulse Ox
70 13 73/45 99
11/29/24 15:00 11/29/24 15:00 11/29/24 15:00 11/29/24 15:00
*Pulse Oximetry
SaO2: 88
Oxygen Mode of Delivery: Room air
Patient hypoxic: yes (88% room air)
*Critical Care Note
Total Time (30-74mins, 75-104mins- exclusive of procedures): 60min
comment:
Patient systolic only 60, however he was not tachycardic. He did respond to IV fluids. Considered pressors as lactic elevation noted and he may or may not have sepsis. His vital signs are closely monitored. Coordinated care with cardiology,
internal medicine, and hospice. Multiple reassessments.
ED Attending Note
-
Portions of this chart may have been created with voice recognition software.� Occasional wrong word or��sound alike� substitutions may have occurred due to the inherent limitations of voice recognition software.
Discharge Plan
Departure
Patient Disposition: Admit
Date of Disposition: 11/29/24
Time of Disposition: 15:14
Presentation/result/management discussed w/ accepting MD/DO: Hospitalist
Discharge Problem:
Sepsis
Prescriptions:
No Action
atorvastatin 10 MG tablet
10 mg PO DAILY
eplerenone 25 MG tablet
12.5 mg PO DAILY
levothyroxine 50 mcg Tablet
50 mcg PO DAILY
pantoprazole 40 mg Tablet,Delayed Release (Dr/Ec)
40 mg PO DAILY
tamsulosin [Flomax] 0.4 mg Capsule
0.4 mg PO BID
midodrine 5 mg Tablet
15 mg PO TID
calcium acetate 667 mg Tablet
667 mg PO AC
Leah-Wade 0.8 mg tablet
1 tab PO DAILY
ergocalciferol (vitamin D2) 1,250 mcg (50,000 unit) Capsule
1,250 mcg PO QMONTH
insulin aspart U-100 [Novolog U-100 Insulin aspart] 100 unit/mL Solution
1 sliding scale dose SC .VIA PUMP Qty: 0
acetaminophen [Tylenol] 325 mg Tablet
650 mg PO Q6HPRN PRN (Reason: MILD PAIN)
torsemide 20 mg Tablet
20 mg PO DAILY
potassium chloride 20 mEq Tablet Extended Release
20 meq PO BID
lorazepam 0.5 mg tablet
0.5 mg PO DAILYPRN PRN (Reason: anxiety)
Referrals:
Adriel Adam MD [Family Provider, Family Practice]
Interventions
Interventions:
*Risk Screen - Suicide Last Done: 11/29/24 14:01
*General Assessment Last Done: 11/29/24 14:19
*Neglect/Abuse Screening Last Done: 11/29/24 14:16
*ED- Fall Risk Assessment Last Done: 11/29/24 14:16
*ED COVID-19 Vaccine History Last Done: 11/29/24 14:16
*ED Influenza Vaccine History Last Done: 11/29/24 14:16
ED- Cardiac Assessment Last Done: 11/29/24 14:17
ED- Neurological Assessment Last Done: 11/29/24 14:17
ED- Pulmonary Assessment Last Done: 11/29/24 14:17
Discharge Date and Time
Print Language: BENGALI
[2024-11-29] MEDS: NSS 500 IV (14:28)
[2024-11-29 14:33] LABS: Hematocrit 42.1 % (39.0-52.0); Hemoglobin 13.6 g/dL (13.0-18.0); Mean Corp Hgb Conc. 32.3 g/dL (33.0-37.0); Mean Corpuscular Volume 92.9 fL (80.0-94.0); Nucleated Red Blood Cells % 0 % (-); Platelet Count 157 10^3/uL (130-400); Red Cell Dist. Width 15.6 % (11.5-14.5)
[2024-11-29 14:49] LABS: ALT (SGPT) 17 U/L (0-50); AST (SGOT) 22 U/L (17-59); Albumin 2.5 g/dl (3.5-5.0); Alkaline Phosphatase 166 U/L (38-126); Blood Urea Nitrogen 30 mg/dl (9-20); Calcium 8.5 mg/dl (8.4-10.2); Carbon Dioxide 25 mmol/L (22-30); Chloride 96 mmol/L (98-107); Glucose 107 mg/dl (70-99); Potassium 3.9 mmol/L (3.5-5.1); Sodium 128 mmol/L (135-145); Total Protein 5.7 g/dl (6.3-8.2); eGFR 9.21
--- NOTE | 2024-11-29 15:27 | W.PN.UPDATE ---
Addendum entered and electronically signed by Renetta Evans MD 11/29/24 19:12:
Lactic acidosis in setting of dehydration and end stage heart disease. No clinical signs of sepsis. s/p fluids in ER, will continue to trend.
Addendum entered and electronically signed by Renetta Evans MD 11/29/24 16:58:
Patient hardly makes any urine, Torsemide is held.
Original Note:
Update Note
Progress Note Update
This is an addendum to H&P written by INSTRUMENTAL MUSIC TEACHER Ce Marti
I saw and examined the patient.
The INSTRUMENTAL MUSIC TEACHER's note was reviewed and I agree with the note.
Comment:
Mr. Blanco Bejarano is a 79 yo man with hx ESRD on peritoneal dialysis, paroxysmal atrial fibrillation, chronic hypotension, ischemic cardiomyopathy, chronic systolic heart failure, hx VT, hypothyroidism, GERD, right lung cancer s/p radiation,
admission 10/27-10/28/24 for bilateral pleural effusions and bacterial peritonitis presents to the ER with weakness and concern for dehydration.
Triage VS: P 45, RR 20, BP 60/37, Spo2 95%
On exam patient is communicative, in no acute distress. decreased breath sounds, abdomen benign, no LE swelling.
LABS: WBC 13.6, Hg 13.6, PLT 157, Na 128, K+ 3.9, CO2 25, BUn 30, Cr 5.9, Glucose 107, Ca 8.5, liver enzymes WNL, BNP > 07058
CXR
IMPRESSION:
Small/moderate right-sided pleural effusion with a small left pleural effusion and adjacent opacities as well as a left perihilar opacity. Findings are overall similar to prior and favored to represent atelectasis/scarring although superimposed
pneumonia would be difficult to exclude.
Cardiomegaly, similar to prior.
Weakness and Dehydration
ESRD on Peritoneal Dialysis
Ischemic cardiomyopathy with EF 10% (per communication with outpatient Contract Administration Specialist, Dr. Mantilla)
Chronic bilateral pleural effusions
-patient reports that his dialysate solution was changed over past month to increase fluid removal given b/l pleural effusions. He is concerned that is now dehydrated and was dizzy when standing earlier today. He received 500cc bolus in the ER
with SBP 80's, he is mentating well.
-patient understands that his heart failure is end stage and he is interested in home hospice but wants to hopefully feel better prior to discharge. His home Contract Administration Specialist mentioned Dobutamine if e/o cardiogenic shock, but with improvement in BP
post fluid, this is likely not necessary.
-admit to telemetry
-consult Cardiology and Nephrology. Patient's goal is to go home on home hospice and continue PD at home
Chronic Hypotension - CYLINDER LOADER Midodrine - patient due for a dose now
GERD - CYLINDER LOADER Protonix
Remainder of plan per INSTRUMENTAL MUSIC TEACHER note
76 minutes spent on patient care
[2024-11-29] MEDS: ROCEPHIN 1000 MG IV (15:29)
--- NOTE | 2024-11-29 15:43 | HPS.HSE ---
Family Physician
-
Family Physician: Adriel Adam
Chief Complaint
-
weakness and dizziness
History of Present Illness
Patient is a 79-year-old male with past medical history significant for ESRD on peritoneal dialysis, atrial fibrillation, chronic hypotension, diabetes mellitus, type II, hyperlipidemia, hypothyroidism, BPH, GERD and prostate cancer s/p seed
brachytherapy who presented to [facility] ED for evaluation of weakness and dizziness. Patient states that he has had a few episodes of feeling dizzy over the past several days but twice today felt as if he may pass out prompting him to come for
evaluation. He reports that he has had a decline in strength over past week and notices that his needs to assist him significantly more than before. Patient does report that he has had loose stools and nausea for the last 24-hours. Deneis
fever, chills, cough, chest pain or vomiting.
Medical History
Past Medical History
Past Medical History: Reports Other
Additional Past Medical History:
Ventricular Tachycardia
Atrial Fibrillation s/p PVI and MAZE procedure
ESRD on Peritoneal Dialysis
Chronic Hypotension
Diabetes Mellitus, Type II
Hyperlipidemia
Hypothyroidism
BPH
GERD
Prostate Cancer s/p seed brachytherapy
Past Surgical History: Reports Other
Additional Past Surgical History:
BiVICD
Left Upper Ext AV Fistula
Left Ankle Bone Spur
Ablation
Bone Spurs Removal - L Ankle 2000
Cardioversion x2
Seeding for Prostate CA
Tonsillectomy
Social History
Tobacco: Non-smoker
Alcohol: None
Personal:
Living: With Family
Family History
Family History: Not pertinent
Allergies / Home Medications
Allergies reflects when Allergies were last updated in [facility].
Home Medications with original date entered in [facility] [facility]
Allergy/Medication List:
Allergies
Allergy/AdvReac Type Severity Reaction Status Date / Time
teds stocking Allergy blisters Uncoded 11/29/24 14:03
Home Medications
atorvastatin 10 mg tablet 10 mg PO DAILY High Cholesterol 03/13/16
eplerenone 25 mg tablet 12.5 mg PO DAILY Fluid Retention/Swelling 03/13/16
levothyroxine 50 mcg tablet 50 mcg PO DAILY Thyroid 11/05/21
pantoprazole 40 mg tablet,delayed release 40 mg PO DAILY Gastrointestinal Issue 11/05/21
tamsulosin 0.4 mg capsule (Flomax) 0.4 mg PO BID Urinary Issue 11/25/21
calcium acetate 667 mg tablet 667 mg PO AC Supplement 08/03/23
midodrine 5 mg tablet 15 mg PO TID Blood Pressure 08/03/23
ergocalciferol (vitamin D2) 1,250 mcg (50,000 unit) capsule 1,250 mcg PO QMONTH Supplement 06/07/24
vitamin B complex-vitamin C-folic acid 0.8 mg tablet (Leah-Wade) 1 tab PO DAILY Supplement 06/07/24
acetaminophen 325 mg tablet (Tylenol) 650 mg PO Q6HPRN PRN MILD PAIN 10/27/24
insulin aspart U-100 100 unit/mL subcutaneous solution (Novolog U-100 Insulin aspart) 1 sliding scale dose SC .VIA PUMP Diabetes ##0 10/27/24
potassium chloride 20 mEq tablet,extended release 20 meq PO BID Supplement 10/27/24
torsemide 20 mg tablet 20 mg PO DAILY Fluid Retention/Swelling 10/27/24
lorazepam 0.5 mg tablet 0.5 mg PO DAILYPRN PRN anxiety 11/29/24
Review of Systems
-
History Source: Patient
Constitutional: Reports Fatigue and Chills; Denies Fever
EENT: Denies Sore Throat
Respiratory: Reports Trouble Breathing (dyspnea); Denies Cough or Hemoptysis
Cardiac: Denies Chest Pain, Diaphoresis, Palpitations or Syncope
Abdomen/GI: Reports Nausea, Diarrhea and Anorexia (poor appetite ); Denies Abdominal Pain or Vomiting
: Reports Other (anuric )
Musculoskeletal: Denies Joint Swelling
Skin: Denies Rash
Neurological: Reports Dizzy (seems positional ) and Weakness; Denies Headache or Numbness
Endocrine: Denies Polyuria or Polydipsia
Physical Exam
Vital Signs
Vital Signs
Temp Pulse Resp BP Pulse Ox
97.5 F 70 13 73/45 99
11/29/24 14:30 11/29/24 15:00 11/29/24 15:00 11/29/24 15:00 11/29/24 15:00
Physical Exam
General: Comfortable, Conversant, Appears Chronically Ill and Cachectic
HEENT: NormoCephalic, Nose Appears Normal and Ears Appear Normal
Respiratory: Clear and Decreased Breath Sounds
Cardiac: Regular Rhythm and Cardiovascular Insuff
GI: Soft, Non Tender, Non Distended, Normal Bowel Sounds and Other (PD cath, Insulin pump)
Musculoskeletal: No Clubbing
Skin: Warm and IV/Catheter Site
Neuro: Awake and AO x 3
Psych: Calm and Intact Judgment/Insight
Laboratory Results
-
11/29/24 14:22
11/29/24 14:22
Laboratory Results
Lactic Acid 4.3 mmol/L (0.7-2.0) H* 11/29/24 14:22
Total Bilirubin 1.2 mg/dl (0.2-1.3) 11/29/24 14:22
AST 22 U/L (17-59) 11/29/24 14:22
ALT 17 U/L (0-50) 11/29/24 14:22
Alkaline Phosphatase 166 U/L (38-126) H 11/29/24 14:22
Data Reviewed
-
Diagnostic Radiology: Report Reviewed by me (CXR: Small/moderate right-sided pleural effusion with a small left pleural effusion and adjacent opacities as well as a left perihilar opacity. Findings are overall similar to prior and favored to
represent atelectasis/scarring although superimposed pneumonia would be difficult to exclude.)
Lab Data: Labs Reviewed by me (WBC 13.6, Neut 75.7, Na+ 128, BUN 30, Creat 5.9, eGFR 9.21, Lactic 4.3, pBNP >82702)
Impression/Plan
-
IMPRESSION/PLAN:
#generalized weakness and dizziness 2/2 dehydration vs. hypotension vs. infectious process vs. AFTT
patient considering home hospice services
WBC 13.6, Neut 75.7, Lactic 4.3, pBNP >63056
EKG: Ventricular-paced rhythm WITH FREQUENT , AND CONSECUTIVE PREMATURE VENTRICULAR COMPLEXES
Biventricular pacemaker detected
CXR: Small/moderate right-sided pleural effusion with a small left pleural effusion and adjacent opacities as well as a left perihilar opacity. Findings are overall similar to prior and favored to represent
atelectasis/scarring although superimposed pneumonia would be difficult to exclude.
- Admit to telemetry
- Consult Cardiology
- Consult Nephrology
- IVF given in ED
- monitor VS
- Consult Hospice (seen in ED and they will follow)
- trend lactic
#ESRD
on peritoneal dialysis
Na+ 128, BUN 30, Creat 5.9, eGFR 9.21
- continue calcium acetate and potassium chloride
- Consult Nephrology for PD
#atrial fibrillation
s/p pacemaker
s/p watchman
#chronic hypotension
patient known to be hypotensive, SBP has not been > 99 in many years
- continue midodrine
#diabetes mellitus, type II
- continue patients home pump
- Consult diabetic BAND TIER
#hyperlipidemia
- continue atorvastatin
#hypothyroidism
- continue levothyroxine
#BPH
- continue tamsulosin
#GERD
- continue pantoprazole
#prostate cancer
s/p seed brachytherapy
Code status: DNR
DVT prophylaxis: SCDs
--- NOTE | 2024-11-29 15:44 | HOSPNOTE ---
Met with patient and spouse and discussed hospice and the philosophy. The plan is the patient will be admitted his code status he confirmed is a DNR. I will continue to follow and support and help the patient and family make decisions about goals of
care.
[2024-11-29 17:15] LABS: COVID-19 Antigen Negative (Negative)
--- NOTE | 2024-11-29 19:01 | PTCARENOTE ---
Received from ED, IMU monitors placed. BP 92/68 100% Vpaced with pvcs. AAOx3 Admission completed at bedside. . Family at [facility].
[2024-11-29] MEDS: FLOMAX 0.4 MG PO (20:46)
[2024-11-29] MEDS: KCL 20 MEQ PO (20:46)
[2024-11-29 21:14] LABS: Glucose - Point of Care 109 mg/dl (70-99)
[2024-11-29] MEDS: NSS 250 IV (23:03)
[2024-11-29] MEDS: ATIVAN 0.5 MG PO (23:04)
[2024-11-30] VITALS (53 sets, daily range): BP systolic 54–93; BP diastolic 38–66; PULSE 78; BMI 22.8; BMI 23.1
[2024-11-30 04:09] LABS: Blood Urea Nitrogen 34 mg/dl (9-20); Calcium 7.9 mg/dl (8.4-10.2); Carbon Dioxide 27 mmol/L (22-30); Chloride 100 mmol/L (98-107); Estimated Creatinine Clearance 10 ml/min; Glucose 76 mg/dl (70-99); Potassium 4.1 mmol/L (3.5-5.1); Sodium 129 mmol/L (135-145); eGFR 8.68
[2024-11-30 04:23] LABS: Hematocrit 35.3 % (39.0-52.0); Hemoglobin 11.9 g/dL (13.0-18.0); Mean Corp Hgb Conc. 33.7 g/dL (33.0-37.0); Mean Corpuscular Volume 91.7 fL (80.0-94.0); Platelet Count 110 10^3/uL (130-400); Red Cell Dist. Width 15.1 % (11.5-14.5)
[2024-11-30 04:27] LABS: Magnesium 1.6 mg/dl (1.6-2.3)
[2024-11-30] MEDS: SYNTHROID 50 MCG PO (04:44)
[2024-11-30] MEDS: MAGNESIUM SULFATE 50 IV (04:44)
[2024-11-30 05:12] LABS: Glucose - Point of Care 75 mg/dl (70-99)
[2024-11-30] MEDS: NSS 250 IV (06:03)
--- NOTE | 2024-11-30 06:56 | W.PN.UPDATE ---
Update Note
Progress Note Update
Bp dropping again this morning (sbp 64)this time map <53. Had nurse give am midodrine and Ordered another small bolus. His wireline field operator Dr worthy suggested to admitting provider last night that we could add dobutamine as pt responded well to this
in past. So based on his recommendation I added dobutamine.�
--- NOTE | 2024-11-30 07:25 | PTCARENOTE ---
hourly shift note:
Patient's bp 82/55 and FARM RANCHER made aware. Rx received for 250 mL bolus,
Patient V-paced on the monitor with occasional polymorphic PVCs. Monitor alarmed 24 beats of Vtach at 0348. FARM RANCHER made aware and Mg added to morning labs. additional 32 beat run of Vtach occurred at 0359. Both strips are recorded in the paper chart.
Patient returned to being V-paced on the monitor with occasional polymorphic PVCs after each time. Mg this am 1.6 and order received for IV Mg sulfate.
SBP 60-70s with MAP <65 and FARM RANCHER made aware. Instructed to give am dose of midodrine and additional 250 mL bolus.
Patient's SBP remained in 60s and FARM RANCHER made aware. Rx received for dobutamine gtt.
--- NOTE | 2024-11-30 07:27 | W.PN.HOSP.TC ---
Addendum entered and electronically signed by Garcia Salas DO 12/01/24 16:31:
Additional diagnoses:
- Present on admission sacrum, pressure injury stage 1
- Hyponatremia, suspect hypovolemic
- Moderate protein calorie malnutrition
- Hypotension only, not hypovolemic shock
Original Note:
Today's Communication/Plan
-
nephro for PD
dobutamine; central line
Diabetic LANGUAGE THERAPIST
hospice following
Labs in the AM
Assessment / Plan
Assessment / Plan
79 yo man with hx ESRD on peritoneal dialysis, paroxysmal atrial fibrillation, chronic hypotension, ischemic cardiomyopathy, chronic systolic heart failure, hx VT, hypothyroidism, GERD, right lung cancer s/p radiation, admission 10/27-10/28/24 for
bilateral pleural effusions and bacterial peritonitis presents to the ER with weakness and concern for dehydration
#Generalized weakness and dizziness 2/2 dehydration vs. hypotension vs. infectious process vs. AFTT
Patient considering home hospice services
- Leukocytosis resolved
- Cardiology and nephro eval pending
- s/p IVF bolus in ED, another small bolus today early Am because of hypotension
- Hospice team is following
- Lactic acid is now wnl
EKG: Ventricular-paced rhythm WITH FREQUENT , AND CONSECUTIVE PREMATURE VENTRICULAR COMPLEXES
Biventricular pacemaker detected
CXR: Small/moderate right-sided pleural effusion with a small left pleural effusion and adjacent opacities as well as a left perihilar opacity. Findings are overall similar to prior and favored to represent
atelectasis/scarring although superimposed pneumonia would be difficult to exclude.
#Chronic systolic congestive heart failure
- No signs suggestive of ongoing volume overload/heart failure exacerbation
#ESRD
on peritoneal dialysis
SCr 5.9--> 6.2
- continue calcium acetate and potassium chloride
-Nephrology for PD
#atrial fibrillation
s/p pacemaker
s/p watchman
#chronic hypotension
patient known to be hypotensive, SBP has not been > 99 in many years
- continue home midodrine
- s/o IVF bolus in the ER and today in the AM.
- Given multiple episodes of sbp near 60s, overnight after discussion with his outpatient cardio; Dobutamine was ordered as he responded well to this in the past.; central line order placed for this
#diabetes mellitus, type II
- continue patients home pump
- diabetic LANGUAGE THERAPIST
#hyperlipidemia
- continue atorvastatin
#hypothyroidism
- continue levothyroxine
#BPH
- continue tamsulosin
#GERD
- continue pantoprazole
#prostate cancer
s/p seed brachytherapy
Code status: DNR
DVT prophylaxis: SCDs
Anticipated Discharge: 24 - 48 hours
Subjective/Interval History
-
Date of Service: November 30, 2024
Afebrile. Hypertensive with SBP in the 70s to 80s. Subjectively denies any complaints. Specifically denies any chest pain, headache, shortness of breath, abdominal pain.
Objective Data
-
Labs:
Laboratory Results
11/30/24
03:30
WBC 9.0
Hgb 11.9 L
Hct 35.3 L
Plt Count 110 L D
Sodium 129 L
Potassium 4.1
Chloride 100
Carbon Dioxide 27
BUN 34 H
Creatinine 6.2 H*
Glucose 76
Calcium 7.9 L
Vital Signs:
Vital Signs
Temp Pulse Resp BP Pulse Ox
97.0 F 71 21 66/51 98
11/29/24 23:08 11/30/24 06:45 11/30/24 06:45 11/30/24 06:45 11/30/24 06:45
I&O
11/29/24 11/30/24 12/01/24
06:59 06:59 06:59
Intake Total 480 / 480
Balance 480 / 480
Review of Systems
-
History Source: Patient
Constitutional: Denies Fever
Respiratory: Denies Cough
Cardiac: Denies Chest Pain
Abdomen/GI: Denies Abdominal Pain
Neuro: Denies Dizzy or Headache
Physical Exam
-
General: Appears Chronically Ill and Cachectic
Respiratory: Clear to Auscultation
Cardiac: Regular Rhythm
GI: Soft
Neuro: Awake, Alert and Oriented
Psych: Calm
Data Reviewed
-
Diagnostic Radiology: Report Reviewed by me, Discussed with Physician and Discussed with Patient
Labs: Labs Reviewed by me, Discussed with Physician and Discussed with Patient
[2024-11-30] MEDS: KCL 20 MEQ PO (07:47)
[2024-11-30] MEDS: PROTONIX 40 MG PO (07:47)
[2024-11-30] MEDS: FLOMAX 0.4 MG PO ×2 (07:47→20:07)
[2024-11-30] MEDS: NEPHROCAP 1 CAPSULE PO (07:47)
[2024-11-30] MEDS: LIPITOR 10 MG PO (07:47)
[2024-11-30] MEDS: DOBUTREX 250 IV (07:49)
[2024-11-30 08:45] LABS: Glucose - Point of Care 96 mg/dl (70-99)
--- NOTE | 2024-11-30 09:34 | CON.CAR ---
Addendum entered and electronically signed by Collins Egan MD 11/30/24 12:24:
I saw and examined the patient.
The Emergency Manager's note was reviewed and I agree with the note.
Comment:
GEN: No distress, awake, Ox3
HEENT: supple, anicteric, mmm
LUNGS: scatt rhonchi
CV: Reg, S1/S2, 1/6 syst LSB, S3+
ABD: soft, BS+, NT/ND
EXT: No edema
NEURO: Gross non-focal
SKIN: No rash
PLan:
79-year-old male with past medical history of advanced end-stage cardiomyopathy with LVEF 20%, BiV ICD, severe MR/TR, permanent A-fib status post Watchman end-stage renal disease on peritoneal dialysis, chronic hypotension diabetes and recent
peritonitis presents with weakness hypotension and fatigue. He makes minimal urine and gets fluid taken off with peritoneal dialysis. He was not feeling well and was given gentle IV fluids with some mild improvement. This morning his blood
pressure has been in the 70-80 systolic range. He was placed on dobutamine drip for some mild inotropic support.
Plan will be for continue IV dobutamine for approximately 24 hours. Hopefully his blood pressure improved slightly although I suspect he is chronically vasodilated with end-stage myopathy. I spoke with him at length about hospice and palliative
care. He is not ready for full hospice but needs support at home with palliative care and nursing care. Continue to follow daily weight. Continue to try to remove fluid via peritoneal dialysis. Continue midodrine 15 p.o. 3 times daily. He does
not tolerate afterload agents.
Okay to use dobutamine IV for 24 to 40 hours with a peripheral IV.
Would defer to renal regarding diuresis with dialysis.
Agree with DNR
NO SGLT2 inhibitor with recent peritonitis
Original Note:
Consultation
Consultation Request
Date/Time Consultation Performed: 11/30/24
Requesting Provider: Dr. Evans
Performing Provider: Kenia Keller PA-C for Dr. Egan
Reason for Consultation: hypotension
Medical History
-
Chief Complaint: hypotension
History of Present Illness:
Patient is a 79-year-old male with past medical history of end-stage cardiomyopathy EF 20% and heart failure with reduced EF, status post BiV ICD with 1 shock 08/2023, severe MR and TR, permanent A-fib status post Watchman, ESRD on peritoneal
dialysis, chronic hypotension on midodrine, diabetes, recent admission for Pseudomonas peritonitis status post course of 21 days of antibiotics completed last week who then reports worsening hypotension and weakness. He reports more fluid has been
taken off with PD as he was noted to have bilateral pleural effusions. He was given 1L of IVF last evening with improvement in blood pressure. He reports at baseline systolic blood pressure is normally in 80s. He has been talking to Dr. Mantilla,
his primary purchasing manager about hospice evaluation. He still lives at home with his as primary caregiver. It appears that is becoming increasingly difficult for her to take care of him at home.
PMH:
End-stage cardiomyopathy EF 20%
Chronic heart failure, mixed systolic and diastolic
Status post BiV ICD
Severe MR and TR
Permanent atrial fibrillation status post watchman
ESRD on peritoneal dialysis
Chronic hypotension on midodrine therapy
Diabetes
Admission to [facility] and 10/2024 for Pseudomonas peritonitis
Past Medical History
Past Medical History: Other (in HPI)
Social History
Tobacco: Non-Smoker
Alcohol: None
Personal:
Living: With Family
Employment: Retired
Family History
Family History: Reviewed & Not Pertinent
Allergies / Home Medications
Allergy/AdvReac Type Severity Reaction Status Date / Time
teds stocking Allergy blisters Uncoded 11/29/24 14:03
�Medication �Instructions �Recorded �Confirmed �Type
atorvastatin 10 mg tablet 10 mg PO DAILY High Cholesterol 03/13/16 11/29/24 History
eplerenone 25 mg tablet 12.5 mg PO DAILY Fluid 03/13/16 11/29/24 History
Retention/Swelling
levothyroxine 50 mcg tablet 50 mcg PO DAILY Thyroid 11/05/21 11/29/24 History
pantoprazole 40 mg tablet,delayed 40 mg PO DAILY Gastrointestinal 11/05/21 11/29/24 History
release Issue
tamsulosin 0.4 mg capsule (Flomax) 0.4 mg PO BID Urinary Issue 11/25/21 11/29/24 History
calcium acetate 667 mg tablet 667 mg PO AC Supplement 08/03/23 11/29/24 History
midodrine 5 mg tablet 15 mg PO TID Blood Pressure 08/03/23 11/29/24 History
ergocalciferol (vitamin D2) 1,250 1,250 mcg PO QMONTH Supplement 06/07/24 11/29/24 History
mcg (50,000 unit) capsule
vitamin B complex-vitamin C-folic 1 tab PO DAILY Supplement 06/07/24 11/29/24 History
acid 0.8 mg tablet (Leah-Wade)
acetaminophen 325 mg tablet 650 mg PO Q6HPRN PRN MILD PAIN 10/27/24 11/29/24 History
(Tylenol)
insulin aspart U-100 100 unit/mL 1 sliding scale dose SC .VIA PUMP 10/27/24 11/29/24 History
subcutaneous solution (Novolog Diabetes ##0
U-100 Insulin aspart)
potassium chloride 20 mEq 20 meq PO BID Supplement 10/27/24 11/29/24 History
tablet,extended release
torsemide 20 mg tablet 20 mg PO DAILY Fluid 10/27/24 11/29/24 History
Retention/Swelling
lorazepam 0.5 mg tablet 0.5 mg PO DAILYPRN PRN anxiety 11/29/24 11/29/24 History
Review of Systems
-
History Source: Patient
All other systems: Negative unless noted
Physical Exam
Vital Signs
Temp Pulse Resp BP Pulse Ox
98.1 F 74 20 80/54 95
11/30/24 07:20 11/30/24 07:36 11/30/24 07:36 11/30/24 07:36 11/30/24 08:00
Lab Results
11/30/24 03:30
11/30/24 03:30
Vyu-D-Mxyvvmypcfq Pept > 09806 pg/ml 11/29/24 14:22
Physical Exam
General: Other (chronically ill appearing. on supp O2)
HEENT: Normocephalic, Anicteric and Moist Mucous Membranes
Respiratory: Clear and Non Labored Respirations
Cardiac: S1/S2 and Irregular Rhythm
GI: Soft, Non Tender, Non Distended and Normal Bowel Sounds
Musculoskeletal: No Clubbing, No Cyanosis and No Edema
Skin: Warm and Dry
Neuro: AO x 3
Impression / Plan
-
Primary Pharmacognosy Teacher: Dr. Mantilla
Assessment:
Acute on chronic hypotension
Suspected dehydration
End-stage cardiomyopathy
Chronic heart failure, mixed systolic and diastolic
Status post BiV ICD
Severe MR and TR
Permanent atrial fibrillation status post watchman
ESRD on peritoneal dialysis
Diabetes
History of right lung cancer status postradiation
Prostate cancer s/p seed brachytherapy
Admission to [facility] and 10/2024 for Pseudomonas peritonitis s/p abx
DNR code status
Echo 08/22/2023: EF 20%, severe eccentric LVH, grade 3 diastolic dysfunction, severely dilated LA, aortic sclerosis, severe TR, severe MR, moderate MAC, dilated inferior vena cava, pleural effusion noted
Plan:
- Patient with known end-stage cardiomyopathy and heart failure with recent Pseudomonas peritonitis status post 21-day course of antibiotics, now admitted with suspected dehydration and acute on chronic hypotension
- Requested and reviewed records from [facility] [place]
- He feels improved status post 1L IV fluid last evening
- Given persistent hypotension, hospitalist WHEEL TUNER started pt on dobutamine 2.5 mcg overnight, tolerating. Will plan to continue for 24 hours, and if remains stable, will plan to wean off in a.m. Would avoid placement of a central line
- lactic acid level has normalized
- Blood pressures in high 70s to low 80s systolic. He is chronically on midodrine 15 mg 3 times daily as outpatient
- Outpatient torsemide and eplerenone on hold at present
- Last echo from 08/2023 reviewed, as above
- There have been discussions as an outpatient regarding transition to hospice level of care as patient's is having difficulty taking care of patient at home. In discussing with patient today, it appears his ideology is most consistent with
palliative care, as he wishes to continue peritoneal dialysis and does not want his ICD therapies turned off, however is a DNR. Will continue goals of care discussions. Discussed to focus on comfort and quality of life rather than quantity.
Hospice to evaluate patient today.
- Ongoing discussions with primary cardiology team
- Discussed with nursing
Data Reviewed
-
EKG: Tracing Personally Visualized and interpreted
Medical Tests (Nuc Med, Echo etc): Report Reviewed by me
Labs: Labs Reviewed by me
Old Records: Requested and Reviewed
[2024-11-30 10:51] LABS: Glucose - Point of Care 78 mg/dl (70-99)
--- NOTE | 2024-11-30 12:05 | HOSPNOTE ---
Met with the patient and the plan is for hospice to continue to follow to help make goal of care decisions. The plan for today is PD, continue blood pressure support and antibiotics. We will continue to follow.
--- NOTE | 2024-11-30 12:12 | W.CON.NEPH ---
Consultation
-
Date/Time Consultation Requested: November 29, 2024 at 1600
Date/Time Consultation Performed: November 30, 2024 at 11 AM
Requesting Provider: Ce Marti
Performing Provider: Dr. Marin
Reason for Consultation: ESRD
Medical History
-
Chief Complaint: ESRD on PD
History of Present Illness:
The patient is a 79-year-old male with a past medical history of end-stage renal disease maintained on peritoneal dialysis. He has a history of chronic hypotension and is maintained on high-dose midodrine 15 mg 3 times daily. He is maintained
calcium acetate for his hyperphosphatemia and statin therapy for his dyslipidemia. He has a known history of diabetes and is maintained on insulin pump.
Presents to the hospital weakness and dizziness with worsening chronic hypotension recently completed treatment for peritonitis Pseudomonas he has severe CHF ejection fraction 20 to 25%. Seen in hospital on dobutamine to help with cardiac output.
We were consulted for his peritoneal dialysis management in the setting of CHF
Past Medical History
Ventricular Tachycardia
Atrial Fibrillation s/p PVI and MAZE procedure
ESRD on Peritoneal Dialysis
Chronic Hypotension
Diabetes Mellitus, Type II
Hyperphosphatemia
Hyperlipidemia
Hypothyroidism
BPH
GERD
Left upper extremity AV fistula
BiV ICD
Prostate Cancer s/p seed brachytherapy
Social History
Tobacco: Non-Smoker
Alcohol: None
Family History
Family History: Not Pertinent
Allergies / Home Medications
Allergy/AdvReac Type Severity Reaction Status Date / Time
teds stocking Allergy blisters Uncoded 11/29/24 14:03
�Medication �Instructions �Recorded �Confirmed �Type
atorvastatin 10 mg tablet 10 mg PO DAILY High Cholesterol 03/13/16 11/29/24 History
eplerenone 25 mg tablet 12.5 mg PO DAILY Fluid 03/13/16 11/29/24 History
Retention/Swelling
levothyroxine 50 mcg tablet 50 mcg PO DAILY Thyroid 11/05/21 11/29/24 History
pantoprazole 40 mg tablet,delayed 40 mg PO DAILY Gastrointestinal 11/05/21 11/29/24 History
release Issue
tamsulosin 0.4 mg capsule (Flomax) 0.4 mg PO BID Urinary Issue 11/25/21 11/29/24 History
calcium acetate 667 mg tablet 667 mg PO AC Supplement 08/03/23 11/29/24 History
midodrine 5 mg tablet 15 mg PO TID Blood Pressure 08/03/23 11/29/24 History
ergocalciferol (vitamin D2) 1,250 1,250 mcg PO QMONTH Supplement 06/07/24 11/29/24 History
mcg (50,000 unit) capsule
vitamin B complex-vitamin C-folic 1 tab PO DAILY Supplement 06/07/24 11/29/24 History
acid 0.8 mg tablet (Leah-Wade)
acetaminophen 325 mg tablet 650 mg PO Q6HPRN PRN MILD PAIN 10/27/24 11/29/24 History
(Tylenol)
insulin aspart U-100 100 unit/mL 1 sliding scale dose SC .VIA PUMP 10/27/24 11/29/24 History
subcutaneous solution (Novolog Diabetes ##0
U-100 Insulin aspart)
potassium chloride 20 mEq 20 meq PO BID Supplement 10/27/24 11/29/24 History
tablet,extended release
torsemide 20 mg tablet 20 mg PO DAILY Fluid 10/27/24 11/29/24 History
Retention/Swelling
lorazepam 0.5 mg tablet 0.5 mg PO DAILYPRN PRN anxiety 11/29/24 11/29/24 History
Review of Systems
-
Dizziness no shortness of breath or chest pain
All other systems: Negative unless noted
Physical Exam
Vital Signs
Vital Signs
Temp Pulse Resp BP Pulse Ox
98.1 F 73 17 68/52 96
11/30/24 07:20 11/30/24 09:09 11/30/24 09:09 11/30/24 09:09 11/30/24 09:09
Lab Results
WBC 9.0 10^3/uL (4.8-10.8) 11/30/24 03:30
RBC 3.85 10^6/uL (4.70-6.10) L 11/30/24 03:30
Hgb 11.9 g/dL (13.0-18.0) L 11/30/24 03:30
Hct 35.3 % (39.0-52.0) L 11/30/24 03:30
Plt Count 110 10^3/uL (130-400) L D 11/30/24 03:30
Sodium 129 mmol/L (135-145) L 11/30/24 03:30
Potassium 4.1 mmol/L (3.5-5.1) 11/30/24 03:30
Chloride 100 mmol/L (98-107) 11/30/24 03:30
Carbon Dioxide 27 mmol/L (22-30) 11/30/24 03:30
BUN 34 mg/dl (9-20) H 11/30/24 03:30
Creatinine 6.2 mg/dL (0.7-1.3) H* 11/30/24 03:30
eGFR 8.68 11/30/24 03:30
Glucose 76 mg/dl (70-99) 11/30/24 03:30
Calcium 7.9 mg/dl (8.4-10.2) L 11/30/24 03:30
Qbo-K-Ljtmvfusftg Pept > 67952 pg/ml 11/29/24 14:22
Albumin 2.5 g/dl (3.5-5.0) L 11/29/24 14:22
Physical Exam
General no acute distress
HEENT no cephalic atraumatic extraocular muscle intact no scleral icterus no JVD neck supple
lungs clear to auscultation bilateral
heart regular S1-S2 positive
abdomen soft nontender positive bowel sounds
extremities no edema pulses present bilateral
Neurologically nonfocal alert and oriented x 3
Skin no lesions no abrasions no petechiae
Psych normal affect no bizarre behavior
Data Reviewed
-
Radiology: Image Personally Visualized and interpreted
Labs: Labs Reviewed by me, Discussed with Nurse and Discussed with Patient
Assessment/Plan
-
Impression:
ESRD on peritoneal dialysis at [facility][1]
Peritonitis= diagnosed 10/25/2024 outpatient with Pseudomonas recently completed
History of ischemic cardiomyopathy (EF ~25%) /ventricular tachycardia status post BiV ICD= does not appear in acute CHF
History of atrial fibrillation status post PVI and maze procedure
History of prostate cancer status post seed brachytherapy
History of lung cancer
Hypothyroidism
Chronic hypotension on high dose midodrine
Anemia
Hyperphosphatemia
Pleural effusion
Plan:
Patient cycler 12 hour treatments times six exchanges with 2.2 L.
Manual exchange here in hospital Q6
1.5% as he is significantly below his weight on discharge October 27, 2024 of 84 kg
Inotropic support
Status post IV fluids in the ER
Long discussion with the patient today about hospice and hospice visit at his home is under the impression he needs to discontinue peritoneal dialysis if he goes on hospice I did explain to him that is not the case. I did discuss this with case
management as well who reiterated that concept.
He is a DNR which was accepted on this admission.
Will continue supportive care although prognosis guarded at best long-term

33 Patient critically ill with chronic condition with complexity of care
Total Time Spent with Patient (in minutes): 33
[2024-11-30 13:18] LABS: Glucose - Point of Care 107 mg/dl (70-99)
--- NOTE | 2024-11-30 14:05 | PN.DE.MGMTRT ---
Insulin Management
- -
11/30/2024 Diabetes Management Consult
Patient admitted 11/29 with c/o weakness, dizzy - dehydration. PMH Prostate CA, diabetes, HLD, hypothyroid, BPH, afib, chronic hypotension, ESRD - peritoneal dialysis, 1 month ago bilateral pleural effusions- bacterial peritonitis. Prior to
admission was using the Medtronic pump with DexCom G7. A1C 6.5%, cr 6.2, eGFR 8.68.
Patient is awake alert and oriented, c/o feeling his glucose is low, his DexCom is reading 75, fingerstick glucose is 78. His insulin pump has been off since yesterday, glucose range 107 to 109. Fasting glucose this AM 75. Will not restart
insulin pump at this time. Pump settings:
Basal rate
12am .2
7am .45
1800 .5
24 hour basal total 9.35
I:CHO ratio 5.5
Sensitivity 1: 50
active insulin 4 hours
Target 100 - 110
Will leave insulin pump off at this time, hospice is following patient to assist with goals of care.
Discussed with nurse.
Will follow.
Diabetes History
- -
Type of Diabetes: 2 requiring insulin
Pre-Admission Diabetes Regimen
11/29/24 11/30/24
14:22 03:30
Creatinine 5.9 H* 6.2 H*
Insulin Pump Settings
IP Diabetes Regimen
11/29/24 11/29/24 11/30/24
14:22 21:03 03:30
Glucose 107 H 76
POC Glucose 109 H
11/30/24 11/30/24 11/30/24
05:00 08:34 10:40
Glucose
POC Glucose 75 96 78
11/30/24
13:07
Glucose
POC Glucose 107 H
Meal type: Dinner
Amount consumed: 75%
Patient Education
--- NOTE | 2024-11-30 17:01 | CM ---
Initial Assessment Completed By SANTOSH Rich.
Patient lives with his spouse in a 2 story home with 2 steps to enter, patient is independent with ADL's and uses a cane with ambulation, patient is on peritoneal HD.
PCP: Adriel Adam
Pharmacy: [facility] in [place].
Hospice consult was placed in the ED and so [employer] Irais spoke to the patient 2x and he declined this services. PLAN: TBD, Home PT vs. SNF
[2024-11-30 17:41] LABS: Glucose - Point of Care 109 mg/dl (70-99)
[2024-11-30] MEDS: KCL PO (20:07)
[2024-11-30 21:21] LABS: Glucose - Point of Care 145 mg/dl (70-99)
[2024-12-01] VITALS (27 sets, daily range): BP systolic 73–100; BP diastolic 47–76
[2024-12-01] MEDS: ATIVAN 0.5 MG PO (00:33)
[2024-12-01] MEDS: SYNTHROID 50 MCG PO (05:09)
--- NOTE | 2024-12-01 06:43 | PTCARENOTE ---
Caring for pt overnight. aaox3, pleasant. Denies pain or dizziness. BP's remain low. Dobutamine gtt remains on, not titrating. Midodrine given. PD Q6. Remains bedrest. Pills whole with water or applesauce. NO other issues will monitor.
--- NOTE | 2024-12-01 07:14 | W.PN.HOSP.TC ---
Addendum entered and electronically signed by Hakeem Mccann MD, Resident 12/01/24 14:52:
IV dobutamine for hypertension
Moderate protein calorie malnutrition
Hyponatremia
Stage I pressure injury on sacrum; present on admission
Original Note:
Today's Communication/Plan
-
Dobutamine per cardio
hospice vs palliative.
Assessment / Plan
Assessment / Plan
79 yo man with hx ESRD on peritoneal dialysis, paroxysmal atrial fibrillation, chronic hypotension, ischemic cardiomyopathy, chronic systolic heart failure, hx VT, hypothyroidism, GERD, right lung cancer s/p radiation, admission 10/27-10/28/24 for
bilateral pleural effusions and bacterial peritonitis presents to the ER with weakness and concern for dehydration
#Generalized weakness and dizziness 2/2 dehydration vs. hypotension vs. infectious process vs. AFTT
Patient considering home hospice services
- Leukocytosis resolved
- Cardiology and nephro input appreciated
- s/p IVF bolus in ED, another small bolus 11/30 Am because of hypotension which is now stable on docbutamine
- Hospice team is following
- Lactic acid is now wnl
EKG: Ventricular-paced rhythm WITH FREQUENT , AND CONSECUTIVE PREMATURE VENTRICULAR COMPLEXES
Biventricular pacemaker detected
CXR: Small/moderate right-sided pleural effusion with a small left pleural effusion and adjacent opacities as well as a left perihilar opacity. Findings are overall similar to prior and favored to represent
atelectasis/scarring although superimposed pneumonia would be difficult to exclude.
#Chronic systolic congestive heart failure
#ESRD
on peritoneal dialysis
SCr 5.9--> 6.2
- continue calcium acetate and potassium chloride
- Nephrology following
#atrial fibrillation
s/p pacemaker
s/p watchman
#chronic hypotension
patient known to be hypotensive, SBP has not been > 99 in many years
- continue home midodrine
- s/o IVF bolus in the ER and today in the AM.
- Dobutamine per cardio recs; SBP now in 90s ; not sure how it will respond when we dc at the time of dicharge
#diabetes mellitus, type II
- diabetic MANAGER CARDIOVASCULAR
#hyperlipidemia
- continue atorvastatin
#hypothyroidism
- continue levothyroxine
#BPH
- continue tamsulosin
#GERD
- continue pantoprazole
#prostate cancer
s/p seed brachytherapy
Code status: DNR
DVT prophylaxis: SCDs
Anticipated Discharge: Within 24 hours
Subjective/Interval History
-
Date of Service: December 01, 2024
Afebrile. Soft blood pressure readings
Objective Data
-
Labs:
Laboratory Results
12/01/24
07:08
WBC Pending
Hgb Pending
Hct Pending
Plt Count Pending
Sodium Pending
Potassium Pending
Chloride Pending
Carbon Dioxide Pending
BUN Pending
Creatinine Pending
Glucose Pending
Calcium Pending
Vital Signs:
Vital Signs
Temp Pulse Resp BP Pulse Ox
97.9 F 71 21 81/56 98
12/01/24 03:10 12/01/24 04:00 12/01/24 04:00 12/01/24 04:00 12/01/24 04:00
I&O
11/30/24 12/01/24 12/02/24
06:59 06:59 06:59
Intake Total 480 / 480 320 / 320
Balance 480 / 480 320 / 320
Review of Systems
-
History Source: Patient
Constitutional: Denies Fever
Respiratory: Denies Cough
Cardiac: Denies Chest Pain
Abdomen/GI: Denies Abdominal Pain
Neuro: Denies Dizzy or Headache
Physical Exam
-
General: Appears Chronically Ill and Cachectic
Respiratory: Clear to Auscultation and Other (Intermittent belly breathing)
Cardiac: Regular Rhythm
GI: Soft
Neuro: Awake, Alert and Oriented
Psych: Calm
Data Reviewed
-
Labs: Labs Reviewed by me, Discussed with Physician and Discussed with Patient
--- NOTE | 2024-12-01 07:22 | PN.DE.MGMTRT ---
Insulin Management
- -
12/01/2024: Diabetes Management follow up
Patient admitted 11/29 with c/o weakness, dizzy-dehydration. PMH: Prostate CA, diabetes, HLD, hypothyroid, BPH, A-Fib, chronic hypotension, ESRD -peritoneal dialysis, 1 month ago b/l pleural effusions- bacterial peritonitis. Prior to admission was
using the Medtronic pump with DexCom G7. A1C 6.5%, Cr 6.2, eGFR 8.68.
Patient is awake alert and oriented, sitting up in bed, able to discuss diabetes care plan
His insulin pump has been off since 11/29, glucose range 78 to 109. Fasting glucose this AM 75.
Will not restart insulin pump at this time.
Pump settings:
Basal rate
12am 0.2
7am 0.45
1800 0.5
24 hour basal total 9.35
I:CHO ratio 5.5
Sensitivity 1: 50
Active insulin 4 hours
Target 100 - 110
Will leave insulin pump off at this time. Pt is not receptive to hospice at this time. Will monitor glucose trend and resume insulin pump if necessary.
Discussed with nurse. Will cont to follow.
Diabetes History
- -
Type of Diabetes: 2 requiring insulin
Pre-Admission Diabetes Regimen
Insulin Pump Settings
IP Diabetes Regimen
11/30/24 11/30/24 11/30/24
08:34 10:40 13:07
POC Glucose 96 78 107 H
11/30/24 11/30/24
17:29 21:10
POC Glucose 109 H 145 H
Meal type: Breakfast
Amount consumed: 60%
Patient Education
--- NOTE | 2024-12-01 09:13 | W.PN.NEPH.PH ---
Today's Communication / Plan
-
PD orders provide
Will increase interval frequency to every 5 hour exchange
Flowsheets need to be recorded
Daily weight
Assessment/Plan
-
Impression:
ESRD on peritoneal dialysis at [facility]
Peritonitis= diagnosed 10/25/2024 outpatient with Pseudomonas recently completed
History of ischemic cardiomyopathy (EF ~25%) /ventricular tachycardia status post BiV ICD= does not appear in acute CHF
History of atrial fibrillation status post PVI and maze procedure
History of prostate cancer status post seed brachytherapy
History of lung cancer
Hypothyroidism
Chronic hypotension on high dose midodrine
Anemia
Hyperphosphatemia
Pleural effusion
Plan:
Patient remains profoundly hypotensive in setting of end-stage cardiomyopathy
Patient seen on peritoneal dialysis
Patient cycler 12 hour treatments times six exchanges with 2.2 L.
Manual exchange here in hospital Q6
1.5% as he is significantly below his weight on discharge October 27, 2024 of 84 kg
No weights are recorded!
Inotropic support
Flowsheets reviewed but only 1 cycle recorded for +200
Maintain current PD but increase frequency to Q5hr
Previous discussion with the patient today about hospice and hospice visit at his home is under the impression he needs to discontinue peritoneal dialysis if he goes on hospice I did explain to him that is not the case. I did discuss this with case
management as well who reiterated that concept.
He is a DNR which was accepted on this admission.
Patient in discussion with hospice nurse this a.m.
Will continue supportive care although prognosis guarded at best long-term

35 Patient critically ill with chronic condition with complexity of care
-
-
Date of Service: December 01, 2024
CC / HPI / ROS
-
Chief Complaint:
ESRD/PD
History of Present Illness:
Hemodynamically unstable on midodrine support with systolic blood pressures in the 70s
PD at 1.5% every 6 hour exchange
Remains on nasal cannula
Review of Systems:
On nasal cannula oxygen
No chest pain no fevers
Labs
-
Labs:
eGFR 8.68 11/30/24 03:30
Qip-F-Vgdpbpjlqnj Pept > 27553 pg/ml 11/29/24 14:22
Albumin 2.5 g/dl (3.5-5.0) L 11/29/24 14:22
Physical Exam
-
Vital Signs:
Vital Signs
Temp Pulse Resp BP Pulse Ox
97.9 F 71 21 81/56 98
12/01/24 03:10 12/01/24 04:00 12/01/24 04:00 12/01/24 04:00 12/01/24 04:00
Cardiovascular:: Regular rate and rhythm
Respiratory:: Bilateral: Coarse
Lung Excursion:: Normal
Abdomen:: Nontender and Soft
Bowel Sounds:: Decreased
Extremity Edema:: None: Bilateral:
Wilder Catheter: No
--- NOTE | 2024-12-01 09:22 | W.PN.CARDCBS ---
Today's Communication / Plan
-
Plan is for home hospice per patient
Continue palliative dobutamine until discharge
Eplerenone and torsemide on hold given chronic hypotension and will consider restarting torsemide soon
Impression / Plan
-
Primary Finger Buff Sewer: Dr. Mantilla
Assessment:
Acute on chronic hypotension
Suspected dehydration
End-stage cardiomyopathy
Chronic heart failure, mixed systolic and diastolic
Status post BiV ICD
Severe MR and TR
Permanent atrial fibrillation status post watchman
ESRD on peritoneal dialysis
Diabetes
History of right lung cancer status postradiation
Prostate cancer s/p seed brachytherapy
Admission to [facility] and 10/2024 for Pseudomonas peritonitis s/p abx
DNR code status
Echo 08/22/2023: EF 20%, severe eccentric LVH, grade 3 diastolic dysfunction, severely dilated LA, aortic sclerosis, severe TR, severe MR, moderate MAC, dilated inferior vena cava, pleural effusion noted
Plan:
He feels okay at present
He plans to go on home hospice
Would continue palliative dobutamine while inpatient and will stop prior to discharge
Blood pressures in high 70s to low 80s systolic. He is chronically on midodrine 15 mg 3 times daily as outpatient
Outpatient torsemide and eplerenone on hold at present we will consider resume torsemide at some point
Discussed with primary service
Progress Note - Finger Buff Sewer
Subjective
Date of Service: December 01, 2024
No complaints
Objective
Labs:
Labs
Hgb 11.9 g/dL (13.0-18.0) L 11/30/24 03:30
Hct 35.3 % (39.0-52.0) L 11/30/24 03:30
Plt Count 110 10^3/uL (130-400) L D 11/30/24 03:30
Sodium 129 mmol/L (135-145) L 11/30/24 03:30
Potassium 4.1 mmol/L (3.5-5.1) 11/30/24 03:30
BUN 34 mg/dl (9-20) H 11/30/24 03:30
Creatinine 6.2 mg/dL (0.7-1.3) H* 11/30/24 03:30
Glucose 76 mg/dl (70-99) 11/30/24 03:30
Vital Signs and I&O:
Vital Signs
Temp Pulse Resp BP Pulse Ox
97.9 F 71 21 81/56 98
12/01/24 03:10 12/01/24 04:00 12/01/24 04:00 12/01/24 04:00 12/01/24 04:00
Vital Signs
Temp Pulse Resp BP Pulse Ox
97.9 F 71 21 81/56 98
12/01/24 03:10 12/01/24 04:00 12/01/24 04:00 12/01/24 04:00 12/01/24 04:00
Intake & Output
11/29/24 11/30/24 12/01/24 12/02/24
06:59 06:59 06:59 06:59
Intake Total 480 / 480 320 / 320
Balance 480 / 480 320 / 320
Physical Exam
Physical Exam
General: Well developed, well nourished in NAD.
Neck: Supple, no JVD, HJR, carotids +2 B/L, no bruits bilaterally.
Heart: Non displaced PMI, RRR, no murmurs, No S3, S4, no rubs.
Lungs: Scattered rhonchi
Extremities: No clubbing, cyanosis or edema bilaterally.
Neuro: Grossly nonfocal, awake, alert and oriented x3.
[2024-12-01] MEDS: PROTONIX 40 MG PO (10:20)
[2024-12-01] MEDS: NEPHROCAP 1 CAPSULE PO (10:21)
[2024-12-01] MEDS: LIPITOR 10 MG PO (10:22)
[2024-12-01] MEDS: FLOMAX 0.4 MG PO (10:22)
[2024-12-01] MEDS: KCL 20 MEQ PO (10:22)
--- NOTE | 2024-12-01 10:46 | HOSPNOTE ---
Spoke with patient multiple times this am about hospice and the philosophy. The plan is for the patient to hopefully go home this weekend and our palliative care team will see patient Wednesday morning at 9am. The patient still wants to continue PD and
with patients terminal diagnosis this is considered a treatment. The patient is in complete understanding and in agreement with plan. Once patient goes home palliative care team through will stay in contact with me and when hospice is needed we
will admit at home. Attending and CM aware of plan and in agreement. If patient declines over the weekend and unable to make it home we could certainly admit inpatient if patient would meet criteria. We will continue to follow over the weekend.
[2024-12-01 12:47] LABS: Glucose - Point of Care 147 mg/dl (70-99)
--- NOTE | 2024-12-01 12:52 | PN.CDI ---
CDI
- -
CDI:
Physician Documentation Request
Admit Date: 11/30/24 11:41
Dear Doctor Maritza/Resident ,
Please review the following and provide your response in the progress notes.
Current documentation includes a diagnosis of hypotension.
Clinical Indicators:
Pt admitted with Hypotension
Progress notes 11/30 &12/01, ' Hypotension: Symptomatic with reported dizziness and weakness Patient has chronic hypotension but this is significantly lower than his baseline Unclear etiology, no clear evidence of infection, possibly volume
depleted from dialysis and decreased recent p.o. intake...Also received 2 boluses of 250 cc of NS and an additional 500 cc bolus of NS for total of 1 L administered since admission Presenting dizziness and weakness have resolved however remains
hypotensive Started dobutamine which has helped him in the past per his outpatient barnworker groom Dr. Mason Mantilla Continuing scheduled midodrine...'
Selected Entries
11/29/24
14:01 11/29/24
14:28 11/29/24
14:30
Blood pressure 60/37 65/39 64/51
MAP (cuff-Miguel Monitor) 46 57
11/29/24
14:35 11/29/24
14:45 11/29/24
15:00
Blood pressure 68/57 67/48
MAP (cuff-Miguel Monitor) 54
11/29/24
17:00
Blood pressure 67/37
MAP (cuff-Miguel Monitor) 47
Please clarify which of the following is the most likely etiology of the above symptoms and treatment rendered/Use of IV Dobutamine :
Hypovolemic shock
Hypotension only
Other ( please specify)
Use of terms such as suspected, likely, concern for, or probable (associated with a specific diagnosis that is being evaluated, monitored, or treated as if it exists) are acceptable and can be coded in the inpatient setting, when documented at the
time of discharge.
Thank you,
Adeline Dubon RN
CDI Specialist
[place] [facility]
Please use your independent medical judgment in providing your response.
--- NOTE | 2024-12-01 13:39 | PN.CDI ---
CDI
- -
CDI:
Physician Documentation Request
Admit Date: 11/30/24 11:41
Dear Doctor Maritza/Resident ,
Please review the following and provide your response in the progress notes.
Clinical Indicators:
Pt admitted with Hypotension /Dehydration/ESRD on PD
Nutrition consult 11/30, ' Current BW: (11/30) 160 lbs 14.999 oz BMI: 23.1 (normal). Weight history (10/27/24) 186 lbs. This is a 14% BW loss over 1 month (significant)Patient meets AND and ASPEN criteria for moderate protein calorie malnutrition of
chronic disease due to more than 5% BW loss over 1 month and less than 50% of estimated nutrition needs met for more than 1 month.'
Documented in the record, Cachexia'
Based on the above information and your assessment, which of the following most accurately represents the patient's nutritional status?
Moderate protein calorie Malnutrition
Other (please specify)
[place] Criteria ([facility] Hospitalist 2017)
2 or more criteria must be present for either
non severe or severe malnutrition
Note that the criteria differs related to the
presence of an acute or chronic illness
Acute Illness Chronic Illness
Energy Intake Non Severe: <75% for >7 days Non Severe: <75% for >1 month
Severe: <50% for >5 days Severe: <75% for >1 month
Weight Loss Non Severe: 1-2% over 1 week Non Severe: 5% over 1 month
5% over 1 month 7.5% over 3 months
7.5% over 3 months 10% over 6 months
1 year N/A 20% over 1 year
Severe: >2% over 1 week Severe: >5% over 1 month
>5% over 1 month >7.5% over 3 months
>7.5% over 3 months >10% over 6 months
1 year N/A >20% over 1 year
Body Fat Non Severe: Mild Decrease Non Severe: Mild Loss
Severe: Moderate Decrease Severe: Severe Loss
Muscle Mass Non Severe: Mild Decrease Non Severe: Mild Loss
Severe: Moderate Decrease Severe: Severe Loss
Fluid Accumulation Non Severe: Mild Accumulation Non Severe: Mild Accumulation
Severe: Moderate to severe Severe: Moderate to severe
accumulation accumulation
Reduced Core Analyst Strength Non Severe: N/A Non Severe: N/A
Severe: Measurably reduced Severe: Measurably reduced
Use of terms such as suspected, likely, concern for, or probable (associated with a specific diagnosis that is being evaluated, monitored, or treated as if it exists) are acceptable and can be coded in the inpatient setting, when documented at the
time of discharge.
Thank you,
Adeline Dubon RN
CDI Specialist
[place] [facility]
Please use your independent medical judgment in providing your response.
--- NOTE | 2024-12-01 13:45 | PN.CDI ---
CDI
- -
CDI:
Physician Documentation Request
Admit Date: 11/30/24 11:41
Dear Doctor Maritza/Resident,
Please review the following and provide your response in the progress notes.
Clinical Indicators:
Pt admitted with Hypotension /Dehydration/ESRD on PD
Sodium levels are as below/Pt did get IVFs
Laboratory Tests
11/29/24 11/30/24
14:22 03:30
Sodium 128 L 129 L
Based on the above, could you clarify in the progress notes, the appropriate diagnosis, if significant, that supports the above abnormalities and additional evaluation, monitoring and/or treatment rendered:
Hyponatremia
Abnormal lab value
Other ( please specify)
Use of terms such as suspected, likely, concern for, or probable (associated with a specific diagnosis that is being evaluated, monitored, or treated as if it exists) are acceptable and can be coded in the inpatient setting, when documented at the
time of discharge.
Thank you,
Adeline Dubon RN
CDI Specialist
[place] [facility]
Please use your independent medical judgment in providing your response.
--- NOTE | 2024-12-01 13:48 | PN.CDI ---
CDI
- -
CDI:
Physician Documentation Request
Admit Date: 11/30/24 11:41
Dear Doctor Maritza/Resident,
Please review the following and provide your response in the progress notes.
Clinical Indicators:
Pt admitted with Hypotension /Dehydration/ESRD on PD
Documented per nursing wound care note 11/29, 'Present on admission sacrum..pressure injury stage 1 ....'
Physician documentation of the type and location of wounds is required for compliant documentation. Based on the above clinical findings and your assessment, please provide the following in your progress note:
1. Location of the ulcer/wound, including laterality.
2. Type (etiology) of ulcer/wound:
- Pressure (decubitus) ulcer
- Non-pressure ulcer
- Other
Use of terms such as suspected, likely, concern for, or probable (associated with a specific diagnosis that is being evaluated, monitored, or treated as if it exists) are acceptable and can be coded in the inpatient setting, when documented at the
time of discharge.
Thank you,
Adeline Dubon RN
CDI Specialist
[place] [facility]
Please use your independent medical judgment in providing your response.
*Source: National Pressure Ulcer Advisory Panel (NPUAP)
[2024-12-01 16:28] LABS: Hematocrit 34.1 % (39.0-52.0); Hemoglobin 10.9 g/dL (13.0-18.0); Mean Corp Hgb Conc. 32.0 g/dL (33.0-37.0); Mean Corpuscular Volume 95.3 fL (80.0-94.0); Platelet Count 99 10^3/uL (130-400); Red Cell Dist. Width 14.8 % (11.5-14.5)
[2024-12-01 16:32] LABS: Blood Urea Nitrogen 31 mg/dl (9-20); Calcium 7.9 mg/dl (8.4-10.2); Carbon Dioxide 25 mmol/L (22-30); Chloride 95 mmol/L (98-107); Estimated Creatinine Clearance 11 ml/min; Glucose 149 mg/dl (70-99); Potassium 4.0 mmol/L (3.5-5.1); Sodium 127 mmol/L (135-145); eGFR 9.03
--- NOTE | 2024-12-01 17:14 | CM ---
F/U: communications lead Irais has been speaking to the patient about Hospice. Today, patient only agreed to Palliative Care. SANTOSH Rich made the referral and Irais spoke to Palliative Care to see the patient on Wednesday. Then Hospitalist with Resident was
trying to DC the patient off his Dobutamine then discharge. In the afternoon, SANTOSH Rich was told Outpatient Cardiology wanted the patient on this, but the team here spoke to the patient, and the plan is to DC patient tomorrow now that he is off this
medication, no PICC line needed.
IMM Completed and patient asked for transport so told him that he slightly qualifies, but we an arrange it, but be aware of possible cost. PLAN: Home w/ Palliative Care.
[2024-12-01 17:17] LABS: Glucose - Point of Care 132 mg/dl (70-99)
[2024-12-01] MEDS: KCL PO (19:44)
[2024-12-01] MEDS: FLOMAX PO (19:44)
--- NOTE | 2024-12-01 20:00 | PTCARENOTE ---
Received pt. at 1900. Pt. currently awake, alert, and oriented. Denies pain/discomfort. Afebrile. Heart rhythm paced. Blood pressure hypotensive. Midodrine ordered. Currently on nasal cannula. Lungs sound diminished. PO diet is ordered. Anuric,
received peritoneal dialysis. Skin as documented. Discussed plan of care with patient. Vital signs stable at this time.
--- NOTE | 2024-12-01 20:02 | PTCARENOTE ---
see nursing worklist. dobutamine discontinued per order. bp unchanged. pt had run of vtach/ not long enough for defibrillator to shock bu pt reported feeling dizzy with incident. pt has not been oob or able to sit upright without dizziness. pt
expressed concern about how will manage at home if pt is discharged and not sure if he will be able to get into car/house. discussed with physician and caser in. pt not being discharged today.
[2024-12-02] VITALS (13 sets, daily range): BP systolic 64–89; BP diastolic 50–71; BMI 23.7
[2024-12-02] MEDS: ATIVAN 0.5 MG PO (00:50)
--- NOTE | 2024-12-02 08:23 | W.PN.NEPH.PH ---
Today's Communication / Plan
-
PD orders performed
Maintain midodrine for blood pressure support
Assessment/Plan
-
Impression:
ESRD on peritoneal dialysis at [facility]
Peritonitis= diagnosed 10/25/2024 outpatient with Pseudomonas recently completed
History of ischemic cardiomyopathy (EF ~25%) /ventricular tachycardia status post BiV ICD= does not appear in acute CHF
History of atrial fibrillation status post PVI and maze procedure
History of prostate cancer status post seed brachytherapy
History of lung cancer
Hypothyroidism
Chronic hypotension on high dose midodrine
Anemia
Hyperphosphatemia
Pleural effusion
Plan:
Patient remains profoundly hypotensive in setting of end-stage cardiomyopathy
Patient seen on peritoneal dialysis
Patient cycler 12 hour treatments times six exchanges with 2.2 L.
Manual exchange here in hospital Q6
1.5% as he is significantly below his weight on discharge October 27, 2024 of 84 kg
Weights up
Inotropic support
High-dose midodrine at 15 milligrams 3 times daily
Flowsheets reviewed but only 1 cycle recorded for : Predominantly even
Maintain current PD at every 5 hour exchange
Placed fluid restriction for worsening hyponatremia
Previous discussion with the patient today about hospice and hospice visit at his home is under the impression he needs to discontinue peritoneal dialysis if he goes on hospice I did explain to him that is not the case. I did discuss this with case
management as well who reiterated that concept.
He is a DNR which was accepted on this admission.
Patient in discussion with hospice nurse this a.m.
Will continue supportive care although prognosis guarded at best long-term

33 Patient critically ill with chronic condition with complexity of care
-
-
Date of Service: December 02, 2024
CC / HPI / ROS
-
Chief Complaint:
ESRD/PD
History of Present Illness:
Hemodynamically unstable on midodrine support with systolic blood pressures in the 80s
PD at 1.5% every 6 hour exchange
Remains on nasal cannula
Review of Systems:
On nasal cannula oxygen
No chest pain no fevers
Labs
-
Labs:
WBC 8.7 10^3/uL (4.8-10.8) 12/01/24 16:08
RBC 3.58 10^6/uL (4.70-6.10) L 12/01/24 16:08
Hgb 10.9 g/dL (13.0-18.0) L 12/01/24 16:08
Hct 34.1 % (39.0-52.0) L 12/01/24 16:08
Plt Count 99 10^3/uL (130-400) L 12/01/24 16:08
Sodium 127 mmol/L (135-145) L 12/01/24 16:08
Potassium 4.0 mmol/L (3.5-5.1) 12/01/24 16:08
Chloride 95 mmol/L (98-107) L 12/01/24 16:08
Carbon Dioxide 25 mmol/L (22-30) 12/01/24 16:08
BUN 31 mg/dl (9-20) H 12/01/24 16:08
Creatinine 6.0 mg/dL (0.7-1.3) H* 12/01/24 16:08
eGFR 9.03 12/01/24 16:08
Glucose 149 mg/dl (70-99) H 12/01/24 16:08
Calcium 7.9 mg/dl (8.4-10.2) L 12/01/24 16:08
Zse-Z-Txerjdrebos Pept > 94918 pg/ml 11/29/24 14:22
Albumin 2.5 g/dl (3.5-5.0) L 11/29/24 14:22
Physical Exam
-
Vital Signs:
Vital Signs
Temp Pulse Resp BP Pulse Ox
97.4 F 73 20 88/56 96
12/02/24 02:53 12/02/24 06:00 12/02/24 06:00 12/02/24 06:00 12/02/24 06:00
Cardiovascular:: Regular rate and rhythm
Respiratory:: Bilateral: Coarse
Lung Excursion:: Normal
Abdomen:: Nontender and Soft
Bowel Sounds:: Decreased
Extremity Edema:: None: Bilateral:
Wilder Catheter: No
Other Findings::
General: Chronically ill-appearing cachectic
[2024-12-02 08:44] LABS: Glucose - Point of Care 93 mg/dl (70-99)
--- NOTE | 2024-12-02 08:49 | W.PN.CARDCBS ---
Today's Communication / Plan
-
Plan is for home palliative care with dobutamine once a week per outpatient cardiology request
Case management trying to arrange
Stable cardiology status with continued chronic severe hypotension
Impression / Plan
-
Primary Sales Store Checker: Dr. Mantilla
Assessment:
Acute on chronic hypotension
Suspected dehydration
End-stage cardiomyopathy
Chronic heart failure, mixed systolic and diastolic
Status post BiV ICD
Severe MR and TR
Permanent atrial fibrillation status post watchman
ESRD on peritoneal dialysis
Diabetes
History of right lung cancer status postradiation
Prostate cancer s/p seed brachytherapy
Admission to [facility] and 10/2024 for Pseudomonas peritonitis s/p abx
DNR code status
Echo 08/22/2023: EF 20%, severe eccentric LVH, grade 3 diastolic dysfunction, severely dilated LA, aortic sclerosis, severe TR, severe MR, moderate MAC, dilated inferior vena cava, pleural effusion noted
Plan:
He wants to go on home hospice but peritoneal dialysis is not excepted with hospitalist
Plan per outpatient abstract searcher is to do dobutamine once a week through a PICC line for palliative care
He tolerated stopping dobutamine on 12/01/2024
Case management trying to arrange
Otherwise stable cardiac status with continued severe hypotension which is chronic
Updated patient's daughter Nandini at bedside by phone
Progress Note - Sales Store Checker
Subjective
Date of Service: December 02, 2024
No chest pain or shortness of breath
Objective
Labs:
12/01/24 16:08
12/01/24 16:08
Labs
Hgb 10.9 g/dL (13.0-18.0) L 12/01/24 16:08
Hct 34.1 % (39.0-52.0) L 12/01/24 16:08
Plt Count 99 10^3/uL (130-400) L 12/01/24 16:08
Sodium 127 mmol/L (135-145) L 12/01/24 16:08
Potassium 4.0 mmol/L (3.5-5.1) 12/01/24 16:08
BUN 31 mg/dl (9-20) H 12/01/24 16:08
Creatinine 6.0 mg/dL (0.7-1.3) H* 12/01/24 16:08
Glucose 149 mg/dl (70-99) H 12/01/24 16:08
Vital Signs and I&O:
Vital Signs
Temp Pulse Resp BP Pulse Ox
97.4 F 73 20 88/56 96
12/02/24 02:53 12/02/24 06:00 12/02/24 06:00 12/02/24 06:00 12/02/24 06:00
Vital Signs
Temp Pulse Resp BP Pulse Ox
97.4 F 73 20 88/56 96
12/02/24 02:53 12/02/24 06:00 12/02/24 06:00 12/02/24 06:00 12/02/24 06:00
Intake & Output
11/30/24 12/01/24 12/02/24 12/03/24
06:59 06:59 06:59 06:59
Intake Total 480 / 480 320 / 320 200 / 200
Output Total 100 / 100
Balance 480 / 480 320 / 320 100 / 100
Physical Exam
Physical Exam
General: Well developed, well nourished in NAD.
Neck: Supple, no JVD, HJR, carotids +2 B/L, no bruits bilaterally.
Heart: Non displaced PMI, RRR, no murmurs, No S3, S4, no rubs.
Lungs: Scattered rhonchi
Extremities: No clubbing, cyanosis or edema bilaterally.
Neuro: Grossly nonfocal, awake, alert and oriented x3.
[2024-12-02] MEDS: NEPHROCAP 1 CAPSULE PO (09:09)
[2024-12-02] MEDS: LIPITOR 10 MG PO (09:13)
[2024-12-02] MEDS: KCL PO ×2 (09:14→20:06)
[2024-12-02] MEDS: FLOMAX 0.4 MG PO ×2 (09:15→20:06)
[2024-12-02] MEDS: SYNTHROID PO (09:15)
[2024-12-02] MEDS: PROTONIX 40 MG PO (09:16)
[2024-12-02 12:41] LABS: Glucose - Point of Care 134 mg/dl (70-99)
--- NOTE | 2024-12-02 13:20 | W.PN.HOSP.TC ---
Today's Communication/Plan
-
Assessment / Plan
Assessment / Plan
General: No Apparent Distress, Comfortable and Conversant
HEENT: NormoCephalic, Moist mucous membranes, Atraumatic
Respiratory: Clear and Non Labored Respirations
Cardiac: S1/S2 and Regular Rhythm; No Rub or Gallop
GI: Soft, nontender, PD catheter in place, normal bowel sounds
Musculoskeletal: No Edema, no deformity
Skin: Warm and dry
: No Wilder
Neuro: Awake, Alert, Nonfocal/grossly intact
Psych: Calm and cooperative
79 yo man with hx ESRD on peritoneal dialysis, paroxysmal atrial fibrillation, chronic hypotension, ischemic cardiomyopathy, chronic systolic heart failure, hx VT, hypothyroidism, GERD, right lung cancer s/p radiation, admission 10/27-10/28/24 for
bilateral pleural effusions and bacterial peritonitis presents to the ER with weakness and concern for dehydration
Hypotension:
- Symptomatic with reported dizziness and weakness, now resolved, blood pressure at baseline and patient feels well
- Patient has chronic hypotension but was significantly lower than his baseline
- Unclear etiology, no clear evidence of infection, possibly volume depleted from dialysis and decreased recent p.o. intake in addition to baseline hypotension due to severely depressed ejection fraction
- Started dobutamine which has helped him in the past per his outpatient lapidary apprentice Dr. Mason Mantilla
- Patient has been considering home hospice although is not ready to discontinue his peritoneal dialysis yet
- Dobutamine discontinued, blood pressure remained stable and that his baseline
- Continuing scheduled midodrine
- Medically stable for discharge to home with home health once arranged, planning outpatient palliative care
#ESRD
on peritoneal dialysis
SCr 5.9--> 6.2
- continue calcium acetate and potassium chloride
- Nephrology following
#atrial fibrillation
s/p pacemaker
s/p watchman
#diabetes mellitus, type II
- diabetic INTERNET SPECIALIST
#hyperlipidemia
- continue atorvastatin
#hypothyroidism
- continue levothyroxine
#BPH
- continue tamsulosin
#GERD
- continue pantoprazole
#prostate cancer
s/p seed brachytherapy
Code status: DNR
DVT prophylaxis: SCDs
Anticipated Discharge: 24 - 48 hours
Subjective/Interval History
-
Date of Service: December 02, 2024
Patient was seen and examined at bedside this morning. Feeling well, no chest discomfort or palpitations this morning.
Objective Data
-
Vital Signs:
Vital Signs
Temp Pulse Resp BP Pulse Ox
98.0 F 73 16 80/63 96
12/02/24 07:00 12/02/24 08:00 12/02/24 08:00 12/02/24 08:00 12/02/24 08:00
I&O
12/01/24 12/02/24 12/03/24
06:59 06:59 06:59
Intake Total 320 / 320 200 / 200
Output Total 100 / 100
Balance 320 / 320 100 / 100
Review of Systems
-
History Source: Patient
All other systems: Reviewed and negative
Physical Exam
-
General: No Apparent Distress
[2024-12-02 17:38] LABS: Glucose - Point of Care 120 mg/dl (70-99)
[2024-12-02 21:15] LABS: Glucose - Point of Care 113 mg/dl (70-99)
[2024-12-03] VITALS (11 sets, daily range): BP systolic 71–96; BP diastolic 52–62
[2024-12-03] MEDS: TYLENOL 650 MG PO ×2 (02:44→15:20)
--- NOTE | 2024-12-03 02:59 | PTCARENOTE ---
assumed care of patient. pt is AAOx3, able to make needs known. PD done q5 hours per order. pt incontinent of bowel, full bed bath and bed change done. pt complaining of discomfort to abdomen d/t extra fluid. notified covering COMMUNITY SERVICE DIRECTOR- pt asking for
tylenol, medication given per APR. on 1L NC 98%. takes pills whole with applesauce. pt did refuse potassium pill tonight. care ongoing.
[2024-12-03] MEDS: ATIVAN 0.5 MG PO (04:12)
[2024-12-03] MEDS: SYNTHROID 50 MCG PO (04:12)
[2024-12-03 05:00] LABS: Blood Urea Nitrogen 30 mg/dl (9-20); Calcium 7.5 mg/dl (8.4-10.2); Carbon Dioxide 27 mmol/L (22-30); Chloride 95 mmol/L (98-107); Estimated Creatinine Clearance 11 ml/min; Glucose 100 mg/dl (70-99); Potassium 3.6 mmol/L (3.5-5.1); Sodium 128 mmol/L (135-145); eGFR 9.60
[2024-12-03] MEDS: KCL PO (08:42)
--- NOTE | 2024-12-03 08:43 | W.PN.NEPH.PH ---
Today's Communication / Plan
-
For discharge
Maintain current PD orders
Assessment/Plan
-
Impression:
ESRD on peritoneal dialysis at [facility]
Hyponatremia
Peritonitis= diagnosed 10/25/2024 outpatient with Pseudomonas recently completed
History of ischemic cardiomyopathy (EF ~25%) /ventricular tachycardia status post BiV ICD= does not appear in acute CHF
History of atrial fibrillation status post PVI and maze procedure
History of prostate cancer status post seed brachytherapy
History of lung cancer
Hypothyroidism
Chronic hypotension on high dose midodrine
Anemia
Hyperphosphatemia
Pleural effusion
Plan:
Patient remains profoundly hypotensive in setting of end-stage cardiomyopathy (sbp ~70s)
Patient seen on peritoneal dialysis
Patient cycler 12 hour treatments times six exchanges with 2.2 L.
Manual exchange here in hospital Q5 change to q6
1.5% as he is significantly below his weight on discharge October 27, 2024 of 84 kg
Weights up
High-dose midodrine at 15 milligrams 3 times daily
Flowsheets reviewed but only 1 cycle recorded for : Predominantly even
Change current PD at every 6 hour exchange
Placed fluid restriction for worsening hyponatremia
He is a DNR which was accepted on this admission.
Patient in discussion with hospice nursing
Will continue supportive care although prognosis guarded at best long-term
Patient to be discharged on home palliative care with eventual transition to hospice
End-of-life discussion with patient today
Patient can be discharged on home PD prescription

35 Patient critically ill with chronic condition with complexity of care
-
-
Date of Service: December 03, 2024
CC / HPI / ROS
-
Chief Complaint:
ESRD/PD
History of Present Illness:
Hemodynamically unstable on midodrine support with systolic blood pressures in the 70s
PD at 1.5% every 6 hour exchange
Remains on nasal cannula
Review of Systems:
On nasal cannula oxygen
No chest pain no fevers
Labs
-
Labs:
WBC 8.7 10^3/uL (4.8-10.8) 12/01/24 16:08
RBC 3.58 10^6/uL (4.70-6.10) L 12/01/24 16:08
Hgb 10.9 g/dL (13.0-18.0) L 12/01/24 16:08
Hct 34.1 % (39.0-52.0) L 12/01/24 16:08
Plt Count 99 10^3/uL (130-400) L 12/01/24 16:08
Sodium 128 mmol/L (135-145) L 12/03/24 04:20
Potassium 3.6 mmol/L (3.5-5.1) 12/03/24 04:20
Chloride 95 mmol/L (98-107) L 12/03/24 04:20
Carbon Dioxide 27 mmol/L (22-30) 12/03/24 04:20
BUN 30 mg/dl (9-20) H 12/03/24 04:20
Creatinine 5.7 mg/dL (0.7-1.3) H* 12/03/24 04:20
eGFR 9.60 12/03/24 04:20
Glucose 100 mg/dl (70-99) H 12/03/24 04:20
Calcium 7.5 mg/dl (8.4-10.2) L 12/03/24 04:20
Pbc-B-Wepcbzptkns Pept > 80313 pg/ml 11/29/24 14:22
Albumin 2.5 g/dl (3.5-5.0) L 11/29/24 14:22
Physical Exam
-
Vital Signs:
Vital Signs
Temp Pulse Resp BP Pulse Ox
97.8 F 70 19 78/60 98
12/03/24 07:44 12/03/24 06:00 12/03/24 06:00 12/03/24 06:00 12/03/24 06:00
Cardiovascular:: Regular rate and rhythm
Respiratory:: Bilateral: Coarse
Lung Excursion:: Normal
Abdomen:: Nontender and Soft
Bowel Sounds:: Decreased
Extremity Edema:: None: Bilateral:
Wilder Catheter: No
Other Findings::
General: Chronically ill-appearing cachectic
[2024-12-03] MEDS: LIPITOR 10 MG PO (08:52)
[2024-12-03] MEDS: FLOMAX 0.4 MG PO (08:52)
[2024-12-03] MEDS: NEPHROCAP 1 CAPSULE PO (08:52)
[2024-12-03] MEDS: PROTONIX 40 MG PO (08:52)
--- NOTE | 2024-12-03 09:46 | W.PN.CARDCBS ---
Today's Communication / Plan
-
Await arrangements to be discharged on palliative care with once weekly dobutamine infusion per outpatient knitter wire mesh
Impression / Plan
-
Primary Hydrometeorological Technician: Dr. Mantilla
Assessment:
Acute on chronic hypotension
Suspected dehydration
End-stage cardiomyopathy
Chronic heart failure, mixed systolic and diastolic
Status post BiV ICD
Severe MR and TR
Permanent atrial fibrillation status post watchman
ESRD on peritoneal dialysis
Diabetes
History of right lung cancer status postradiation
Prostate cancer s/p seed brachytherapy
Admission to [facility] and 10/2024 for Pseudomonas peritonitis s/p abx
DNR code status
Echo 08/22/2023: EF 20%, severe eccentric LVH, grade 3 diastolic dysfunction, severely dilated LA, aortic sclerosis, severe TR, severe MR, moderate MAC, dilated inferior vena cava, pleural effusion noted
Plan:
Await arrangements to go home on palliative care
Plan per outpatient knitter wire mesh is to do dobutamine once a week through a PICC line for palliative care
He tolerated stopping dobutamine on 12/01/2024
Progress Note - Hydrometeorological Technician
Subjective
Date of Service: December 03, 2024
No complaints
Objective
Labs:
12/01/24 16:08
12/03/24 04:20
Labs
Hgb 10.9 g/dL (13.0-18.0) L 12/01/24 16:08
Hct 34.1 % (39.0-52.0) L 12/01/24 16:08
Plt Count 99 10^3/uL (130-400) L 12/01/24 16:08
Sodium 128 mmol/L (135-145) L 12/03/24 04:20
Potassium 3.6 mmol/L (3.5-5.1) 12/03/24 04:20
BUN 30 mg/dl (9-20) H 12/03/24 04:20
Creatinine 5.7 mg/dL (0.7-1.3) H* 12/03/24 04:20
Glucose 100 mg/dl (70-99) H 12/03/24 04:20
Vital Signs and I&O:
Vital Signs
Temp Pulse Resp BP Pulse Ox
97.8 F 70 19 78/60 98
12/03/24 07:44 12/03/24 06:00 12/03/24 06:00 12/03/24 06:00 12/03/24 06:00
Vital Signs
Temp Pulse Resp BP Pulse Ox
97.8 F 70 19 78/60 98
12/03/24 07:44 12/03/24 06:00 12/03/24 06:00 12/03/24 06:00 12/03/24 06:00
Intake & Output
12/01/24 12/02/24 12/03/24 12/04/24
06:59 06:59 06:59 06:59
Intake Total 320 / 320 200 / 200 400 / 400
Output Total 100 / 100
Balance 320 / 320 100 / 100 400 / 400
Physical Exam
Physical Exam
General: Well developed, well nourished in NAD.
Neck: Supple, no JVD, HJR, carotids +2 B/L, no bruits bilaterally.
Heart: Non displaced PMI, RRR, no murmurs, No S3, S4, no rubs.
Lungs: Scattered rhonchi
Extremities: No clubbing, cyanosis or edema bilaterally.
Neuro: Grossly nonfocal, awake, alert and oriented x3.
--- NOTE | 2024-12-03 10:54 | W.DCSUMMARY ---
Discharge Summary
Discharge Data
Date of Admission: 11/30/24
Date of Discharge: 12/03/24
Total time spent discharging patient (in min): 58
-
Pending Results: No
Hospital Course
Mr. Bejarano is a 79 yo man with a medical history of ESRD on peritoneal dialysis, paroxysmal atrial fibrillation, chronic hypotension, ischemic cardiomyopathy, chronic systolic heart failure (ICD in place), VT, hypothyroidism, GERD, right lung cancer
s/p radiation, admission 10/27-10/28/24 for bilateral pleural effusions and bacterial peritonitis who presented with weakness and severe hypotension. He was given gentle IV fluids and started on dobutamine with improvement in his blood pressure and
weakness. He was interested in discussing palliative and hospice care options. He is not ready to initiate hospice care yet. The dobutamine drip was discontinued and he was continued on his scheduled midodrine. His blood pressure remained low
but at baseline and he remained asymptomatic. He is being discharged to home with palliative care. He will follow-up with his primary cycle analyst and potentially initiate hospice care when ready.
General: No Apparent Distress, Comfortable and Conversant
HEENT: NormoCephalic, Moist mucous membranes, Atraumatic
Respiratory: Clear and Non Labored Respirations
Cardiac: S1/S2 and Regular Rhythm; No Rub or Gallop
GI: Soft, nontender, PD catheter in place, normal bowel sounds
Musculoskeletal: No Edema, no deformity
Skin: Warm and dry
: No Wilder
Neuro: Awake, Alert, Nonfocal/grossly intact
Psych: Calm and cooperative
Discharge Plan
-
Patient Disposition: Home (Routine Discharge)
Discharge Diagnosis/Procedures: Hypotension, Generalized weakness and dizziness 2/2 dehydration vs. hypotension
End-stage renal disease
Chronic systolic congestive heart failure
Atrial fibrillation
Diabetes type 2
Hypothyroidism
BPH
GERD
Prostate cancer
Condition: Fair
Diet: Diabetic, Carb Controlled
Activity: With assistance and As tolerated
Driving Restrictions: As prior to admission
Bathing Restrictions: None
Referrals:
Deven Mantilla MD [Affiliate, Cardiology] - 12/15/24 10:00 am
Referral Note: Please call with questions
Adriel Adam MD [Family Provider, [facility]]
Additional Discharge Medication Instructions: Please keep eplerenone and torsemide on hold until you see your cycle analyst outpatient.
You may continue your other home medications.
While you are in the hospital you received IV dobutamine to help with the blood pressure as it was in the 60s. I would encourage you to follow-up with your outpatient cycle analyst for additional recommendation.
Prescriptions:
Continued
atorvastatin 10 MG tablet
10 mg PO DAILY
levothyroxine 50 mcg Tablet
50 mcg PO DAILY
pantoprazole 40 mg Tablet,Delayed Release (Dr/Ec)
40 mg PO DAILY
tamsulosin [Flomax] 0.4 mg Capsule
0.4 mg PO BID
midodrine 5 mg Tablet
15 mg PO TID
calcium acetate 667 mg Tablet
667 mg PO AC
Leah-Wade 0.8 mg tablet
1 tab PO DAILY
ergocalciferol (vitamin D2) 1,250 mcg (50,000 unit) Capsule
1,250 mcg PO QMONTH
insulin aspart U-100 [Novolog U-100 Insulin aspart] 100 unit/mL Solution
1 sliding scale dose SC .VIA PUMP Qty: 0
acetaminophen [Tylenol] 325 mg Tablet
650 mg PO Q6HPRN PRN (Reason: MILD PAIN)
potassium chloride 20 mEq Tablet Extended Release
20 meq PO BID
lorazepam 0.5 mg tablet
0.5 mg PO DAILYPRN PRN (Reason: anxiety) Qty: 20 0RF
Held
eplerenone 25 MG tablet
12.5 mg PO DAILY
Hold Instructions: Resume on 12/15/24. Please keep it on hold until you see your cycle analyst outpatient.
torsemide 20 mg Tablet
20 mg PO DAILY
Hold Instructions: Resume on 12/15/24. Please keep it on hold until u see cycle analyst outpatient
Discharge Orders:
Discharge Patient (As Directed); Ordered 12/03/24
Ordered By: Garcia Salas
Discharge Date and Time
Print Language: TAJIK
[2024-12-03 11:00] LABS: Glucose - Point of Care 103 mg/dl (70-99)
--- NOTE | 2024-12-03 11:00 | CM ---
Pt will be discharged to home with Palliative Care when medically ready. Pt has requested ambulance transport.
--- NOTE | 2024-12-03 13:20 | CM ---
SANTOSH met with Blanco at bedside. He is going home today via ambulance.
IMM reviewed; pt signed and placed in chart. Discussed with RN who advised that patient does not currently need oxygen; pt wearing O2 for comfort.
Plan: Discharge to home today via ambulance with plan for palliative care visit tomorrow per pt report.
== END 2024-12-03 18:30 | disposition home or self-care (01) | DRG 640 ==
LOC: IMU 11:41
PROVIDERS: Nurse Practitioner Family; Specialist; ADMITTING PHYSICIAN Student in an Organized Health Care Education/Training Program; ATTENDING PHYSICIAN Internal Medicine; CONSULT PHYSICIAN Internal Medicine Nephrology; EMERGENCY PHYSICIAN Emergency Medicine; FAMILY PHYSICIAN Family Medicine; OTHER PHYSICIAN Internal Medicine Cardiovascular Disease
DX: E86.0 Dehydration (principal); K65.8 Other peritonitis; N18.6 End stage renal disease; E44.0 Moderate protein-calorie malnutrition; I47.20 Ventricular tachycardia, unspecified; I50.22 Chronic systolic (congestive) heart failure; I48.21 Permanent atrial fibrillation; R64 Cachexia; I95.89 Other hypotension; E87.1 Hypo-osmolality and hyponatremia; E87.20 Acidosis, unspecified; I25.5 Ischemic cardiomyopathy; K21.9 Gastro-esophageal reflux disease without esophagitis; E03.9 Hypothyroidism, unspecified; E11.22 Type 2 diabetes mellitus with diabetic chronic kidney disease; Z66 Do not resuscitate; D63.1 Anemia in chronic kidney disease; E83.39 Other disorders of phosphorus metabolism; E78.00 Pure hypercholesterolemia, unspecified; N40.0 Benign prostatic hyperplasia without lower urinary tract symptoms; L89.151 Pressure ulcer of sacral region, stage 1; Z96.41 Presence of insulin pump (external) (internal); Z11.52 Encounter for screening for COVID-19; Z51.5 Encounter for palliative care; Z68.23 Body mass index [BMI] 23.0-23.9, adult; Z79.899 Other long term (current) drug therapy; Z85.46 Personal history of malignant neoplasm of prostate; Z92.3 Personal history of irradiation; Z95.810 Presence of automatic (implantable) cardiac defibrillator; Z99.2 Dependence on renal dialysis; Z79.4 Long term (current) use of insulin; Z79.890 Hormone replacement therapy; Z85.118 Personal history of other malignant neoplasm of bronchus and lung
CPT/HCPCS: 71045; 80048; 80053; 82962; 83605; 83735; 83880; 85025; 85027; 87040; 87045; 87046; 87324; 87427; 87449; 87502; 87811; 93005; 96361; 96374; 99291; J1250